=== PATIENT | female | born 1965 | race Caucasian/White ===

== ENCOUNTER 2024-05-25 16:50 | Outpatient (CLI) | payer OTHER, SELFPAY ==
[2024-05-25 17:16] LABS: Basophils # 0.1 K/mm3 (0-0.2); Basophils % 0.8 % (0.1-2.0); Eosinophils # 0.3 K/mm3 (0.0-0.4); Eosinophils % 2.8 % (0.1-12.0); Hematocrit 41.1 % (37.0-47.0); Hemoglobin 13.5 g/dL (12.2-16.2); Lymphocytes # 2.8 K/mm3 (0.7-4.5); Lymphocytes % 28.2 % (10-50); Mean Corpuscular HGB Conc 32.7 g/dL (31.8-35.4); Mean Corpuscular Hemoglobin 29.8 pg (27.0-31.2); Mean Corpuscular Volume 91.1 fl (81-99); Mean Platelet Volume 7.6 fl (7.4-10.4); Monocytes # 0.5 K/mm3 (0.1-1.0); Monocytes % 4.5 % (1.7-9.3); Neutrophils # 6.3 K/mm3 (1.8-7.8); Neutrophils % 63.7 % (37.0-80.0); Platelet Count 365 K/mm3 (142-424); Red Blood Count 4.51 M/mm3 (4.20-5.40); Red Cell Distribution Width 14.3 % (11.5-17.5); White Blood Count 9.8 K/mm3 (4.8-10.8)
[2024-05-25 18:49] LABS: Erythrocyte Sedimentation Rate 9 mm/hr (0-30)
[2024-05-25 22:00] LABS: C-Reactive Protein 18.4 mg/L (0-4)
== END 2024-05-25 23:59 | disposition home or self-care (01) ==
LOC: LAB 16:59
PROVIDERS: PCP Family Medicine; Visit Provider Family Medicine
DX: D47.4 Osteomyelofibrosis (principal)
CPT/HCPCS: 36415; 85025; 85651; 86140

== ENCOUNTER 2024-10-22 17:06 | Outpatient (CLI) | payer OTHER, SELFPAY ==
[2024-10-22 16:40] LABS: Basophils # 0.1 K/mm3 (0-0.2); Basophils % 0.5 % (0.1-2.0); Eosinophils # 0.2 K/mm3 (0.0-0.4); Eosinophils % 1.8 % (0.1-12.0); Hematocrit 40.9 % (37.0-47.0); Hemoglobin 13.4 g/dL (12.2-16.2); Lymphocytes # 2.3 K/mm3 (0.7-4.5); Lymphocytes % 24.7 % (10-50); Mean Corpuscular HGB Conc 32.8 g/dL (31.8-35.4); Mean Corpuscular Hemoglobin 28.8 pg (27.0-31.2); Mean Platelet Volume 10.3 fl (7.4-10.4); Monocytes # 0.6 K/mm3 (0.1-1.0); Neutrophils # 6.1 K/mm3 (1.8-7.8); Neutrophils % 66.5 % (37.0-80.0); Platelet Count 366 K/mm3 (142-424); Red Blood Count 4.65 M/mm3 (4.20-5.40); Red Cell Distribution Width 13.2 % (11.5-17.5); White Blood Count 9.1 K/mm3 (4.8-10.8)
[2024-10-22 17:21] LABS: Erythrocyte Sedimentation Rate 22 mm/hr (0-30); Hemoglobin A1C 5.9 % (4.0-6.0)
[2024-10-22 17:56] LABS: Albumin Level 4.6 g/dl (3.5-5.0); Chloride 96 mmol/L (98-107); Potassium 3.7 mmoL/L (3.5-5.1); Sodium 140 mmol/L (136-145)
[2024-10-22 17:59] LABS: Alanine Aminotransferase 32 U/L (12-78); Albumin/Globulin Ratio 1.8 (1.1-1.8); Alkaline Phosphatase 92 U/L (38-126); Anion Gap 14.7 mEq/L (5-15); Aspartate Amino Transferase 28 U/L (14-36); Bilirubin,Total 0.7 mg/dl (0.2-1.3); Blood Urea Nitrogen 14 mg/dl (7-17); Calcium 9.4 mg/dl (8.4-10.2); Carbon Dioxide 33 mmol/L (22.0-30.0); Cholesterol 212 mg/dl (140-200); Estimated Glomerular Filt Rate 86 ml/min (>60); GFR (African American) 104 ML/MIN (>60); Globulin 2.5 g/dL (1.3-3.2); Glucose 85 mg/dl (74-100); Total Protein,Serum 7.1 g/dl (6.3-8.2); Triglycerides 189 mg/dl (30-150); VLDL Cholesterol 38 mg/dL (0-40)
[2024-10-22 18:00] LABS: Chol/HDL Ratio 3.6 (1-3.5); HDL Cholesterol 59 mg/dl (40-60)
[2024-10-22 18:10] LABS: C-Reactive Protein 10.7 mg/L (0-4); Direct LDL Cholesterol 106.23 mg/dL (100-129)
== END 2024-10-22 23:59 | disposition home or self-care (01) ==
LOC: LAB.DROPOF 17:06
PROVIDERS: PCP Internal Medicine; Visit Provider Internal Medicine
DX: Z00.00 Encounter for general adult medical examination without abnormal findings (principal); D47.1 Chronic myeloproliferative disease; Z13.1 Encounter for screening for diabetes mellitus; Z13.220 Encounter for screening for lipoid disorders
CPT/HCPCS: 80053; 80061; 83036; 85025; 85651; 86140

== ENCOUNTER 2025-03-25 11:35 | Outpatient (CLI) | payer OTHER, SELFPAY ==
[2025-03-25 14:01] LABS: Lyme Ab IgM CIA ND; Lyme IgG CIA ND
[2025-03-25 15:30] LABS: NT Pro Brain Natriuretic Pep. 38.4 pg/mL (0-125)
[2025-03-26 11:38] LABS: Lyme Ab CIA Negative (Negative)
--- OUTSIDE RECORDS SUMMARY | 2025-03-28 11:37 | XMS_ITS | Continuity of Care Document ---
Author Name [facility] Organization [facility] Care Team Providers Care [employer] Tutor Name Role Phone [facility] Unavailable Unavailable Social History Combined list of available smoking, tobacco, and other social history from Department of Defense and Veterans Affairs facilities. Social History Type Response Date Comment Sourc e This section is an empty social history section. DoD
--- OUTSIDE RECORDS SUMMARY | 2025-03-28 11:42 | XMS_ITS | Encounter Summary ---
Author Organization [facility] Address [address] [place] [id number] Care Team Providers Care Commission Associate Name Role Phone Payal Lo MD Primary Care Provider [phone] Juan Pablo Gilman MD Unavailable [phone] Arsenio Fish MD Unavailable Unavailabl e Arlen Garcia NP Unavailable [phone] Indira Li DO Unavailable [phone] Encounter Details Date Type Department Care Team (Late st Contact Info) Description 07/12/[address] [facility] Physicians - Spine Surgery, [place] [address] [place] [address] Ambulatory, Preassembler And Inspector Social History Tobacco Use Types Packs/Day Years Used Date Smoking Tobacco: Former Cigarettes 1 20 0 09/29/1995 - 08/16/2015 Smokeless Tobacco: Never Comments:I miss it and hate the weight gain. 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 No / Unsure 07/13/2020 10:33 AM EDT documented as of this encounter Plan of Treatment Not on file documented as of this encounter Visit Diagnoses Not on filedocumented in this encounter Additional Health Concerns Assessment Noted Time PHQ-9 Depression Total Score: 1 06/22/20 19 3:25 PM EDT documented as of this encounter Care Teams Commission Associate Relationship Specialty Start Date End Date Payal Lo MD PCP - General Family Medicine 03/01/15 09/29/24 Juan Pablo Gilman MD [address] [place] [address] Internal Medicine, Sleep Medicine 11/28/20 Arsenio Fish MD [address] [place] [id number] Neurosurgery 11/30/20 Arlen Garcia NP [address] [place] [address] Nurse Practitioner Nurse Practitioner, Family 12/26/20 Indira Li DO [address] [place] [address] Dermatology 09/13/21 documented as of this encounter
--- OUTSIDE RECORDS SUMMARY | 2025-03-28 11:42 | XMS_ITS | Clinical Summary ---
Author Organization [facility] Address [address] [place] [address] Care Team Providers Care Technical Publications Writer Name Role Phone Juan Pablo Gilman MD Unavailable [phone] Arsenio Fish MD Unavailable Unavailabl Arlen Hawley NP Unavailable [phone] Indira Li DO Unavailable [phone] Allergies Active Allergy Reactions Criticality Noted Date Comments Bee Venom Protein (Honey Bee) Anaphylaxis High 12/19/2021 Nebivolol Other (See Comments) 02/05/2016 Extreme fatigue and leg swelling Flu Vac(Pf)2015(65up)-Adjm f59c Anaphylaxis High 12/19/2021 Influenza A (H1n1) Vac 200803/08/2015 Made pt very sick w/ very high fever Lisinopril 03/08/2015 cough Amlodipine Swelling 03/15/2016 dizziness Nut - Unspecified Swelling 06/22/2019 Mouth swelling Shellfish Derived Anaphylaxis 08/28/2020 Tree Nut Anaphylaxis,Hives,Sw el ling High 11/20/2021 Medications Cholecalciferol, Vitamin D3, 2,000 unit Capsule Take 1 Cap by mouth daily. Active MULTIVITAMIN PO Take 1 Cap by mouth daily. Active umeclidinium-lacey anteroL (Anoro Ellipta) 62.5-25 mcg/actuation Disk with DeviceIndication s:Other emphysema (CMS HCC) Take 1 Puff by inhalation daily. 3 Each 3 3 Active fluticasone propionate (FLONASE) 50 mcg/actuation nasal sprayIndications :Obstructive sleep apnea syndrome SHAKE LIQUID AND USE 1 TO 2 SPRAYS IN EACH NOSTRIL EVERY NIGHT AT BEDTIME 48 g 4 3 Active potassium chloride (Klor-Con M20) 20 mEq SR tabletIndication s:Hypokalemia Take 1 Tablet (20 mEq) by mouth 2 times daily. 180 Tablet 3 3 Active ergocalciferol (ERGOCALCIFEROL) 1,250 mcg (50,000 unit) CapsuleIndicatio ns:Vitamin D deficiency Take 1 Capsule (50,000 Units) by mouth 2 times weekly. 24 Capsule 3 Active Additional Information Patient not taking.Reported on 11/05/2023 Flovent HFA 110 mcg/actuation inhalerIndicatio ns:Other emphysema (CMS HCC) INHALE TWO PUFFS BY MOUTH TWICE A DAY 12 g 5 3 Active ergocalciferol (ERGOCALCIFEROL) 1,250 mcg (50,000 unit) CapsuleIndicatio ns:Vitamin D deficiency Take 1 Capsule (50,000 Units) by mouth 2 times weekly. 24 Capsule 4 Active albuterol sulfate (ProAir HFA) 90 mcg/actuation HFA Aerosol InhalerIndicatio ns:Other emphysema (CMS HCC) Take 1 Puff by inhalation every 4 hours as needed. 3 Each 3 4 Active losartan (COZAAR) 50 mg TabletIndication s:Essential hypertension Take 1 Tablet by mouth 2 times daily. 180 Tablet 3 4 Active chlorthalidone (HYGROTEN) 25 mg tabletIndication s:Essential hypertension Take 1 Tablet (25 mg) by mouth 2 times daily. 180 Tablet 3 4 Active EPINEPHrine (EPIPEN) 0.3 mg/0.3 mL Auto-Injector epi-pen INJECT 0.3 ML (0.3 MG) INTO THE MUSCLE ONCE FOR 1 DOSE 2 Each 11 4 Active Active Problems Problem Noted Date Diagnosed Date RIVAS (obstructive sleep apnea) 12/26/2020 Mixed simple and mucopurulent chronic bronchitis ([facility]) 12/26/2020 Spondylolisthesis, lumbar region 09/18/2020 Overview (09/18/2020): Added automatically from request for surgery [id number] DDD (degenerative disc disease), lumbar 09/18/20 20 Overview (09/18/2020): Added automatically from request for surgery [id number] Lumbar radiculopathy 09/18/2020 Overview (09/18/2020): Added automatically from request for surgery [id number] Foraminal stenosis of lumbar region 09/18/2020 Overview (09/18/2020): Added automatically from request for surgery [id number] Spinal stenosis of lumbar re gion without neurogenic claudication 09/18/2020 Overview (09/18/2020): Added automatically from request for surgery [id number] Lumbar stenosis without neurogenic claudication 09/18/2020 Overview (09/19/2020): Added automatically from request for surgery [id number] Radiculopathy, lumbar region 09/18/2020 Overview (09/19/2020): Added automatically from request for surgery [id number] Lumbar disc disease with radiculopathy 0 Spondylolisthesis of lumbar region 07/13/2020 Non morbid obesity due to excess calories 2016 Plantar fasciitis, bilateral 02/04/2017 Vitamin D deficiency 02/29/2016 Overview (02/17/2018): [facility] HTN (hypertension) Idiopathic myelofibrosis ([facility]) Overview (03/08/2015): Dr Javier Uriarte at [facility] Resolved Problems Problem Noted Date Diagnosed Date Resolved Date Seasonal allergic rhinitis 10/30/2021 0 01/14/2022 Immunizations Immunization Administration Dates Next Due Tdap 10/31/2021,06/29/2012 Family History Medical History Relation Name Comments Cancer Father Leukemia Diabetes Father Heart Problems Father Hypertension Father Cancer Maternal Grandmother Cancer Mother Osteoarthritis Mother Heart Problems Paternal Grandfather Hypertension Paternal Grandfather Heart Problems Paternal Grandmother Anesthesia Complications Neg Hx Relation Name Status Comments Brother Alive Daughter 1 Alive 26 Daughter 2 Alive 21 Father (Age 73) Maternal Grandmother Mother Alive 75 Paternal Grandfather Paternal Grandmother Sister Alive Son 1 Alive 29 Son 2 Alive 21 Social History Tobacco Use Types Packs/Day Years Used Date Smoking Tobacco: Former Cigarettes 1 20 0 09/29/1995 - 08/16/2015 Smokeless Tobacco: Never Tobacco Cessation:Counseling Given: No Comments:I miss it and hate the weight gain. 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 Not on file Last Filed Vital Signs Vital Sign Reading Time Taken Comments Blood Pressure 138/74 11/05/2023 3:39 PM EST Pulse 72 11/05/2023 3:39 PM EST Temperature 36.9 C (98.4 F) 11/05/2023 3:39 PM EST Respiratory Rate 16 10/30/2021 2:07 PM EST Oxygen Saturation 98% 11/05/2023 3:39 PM EST Inhaled Oxygen Concentration - - Weight 98.9 kg (218 lb) 11/05/2023 3:39 PM EST Height 167.6 cm (5' 6 ) 11/05/2023 3:39 PM EST Body Mass Index 35.19 11/05/2023 3:39 PM EST Plan of Treatment Health Maintenance Due Date Last Done Comments Colonoscopy 1966 FIT 1966 Pneumococcal Vaccine: 50+ Ye ars (1 of 2 - PCV) 1985 Zoster-RZV(Shingrix) (1 of 2) 02/23/2016 Lung Cancer Screening 12/20/2021 12/20/2020 COVID-19 Vaccine (2 - 2023-2 5 season) 2024 06/14/2021 Depression Screening 09/29/2024 11/05/2023, 11/04/2022, 10/31/2021, Additional history exists Breast Cancer Screening 08/08/2025 08/08/20, 05/29/2022, 01/25/2021, Additional history exists Cologuard 11/15/2025 11/15/2022 Colorectal Cancer Screening 11/15/2025 Lipid Screening 10/18/2028 10/18/2023, 01/28, 11/01/2022, Additional history exists Tetanus Vaccination (Every 1 0 Years) 10/31/2031 10/31/2021, 06/29/2012 Procedures Procedure Name Priority Date/Time Associated Diagnosis Comments LIPID PROFILE Routine 10/18/2023 10:11 AM EST Annual physical exam Hypertriglyceridemia MAMM-SCREENING W/CHARITY Routine 08/08/2023 2:29 PM EST Visit for screening mammogram COLOGUARD Routine 11/15/2022 6:45 AM EST Screening for colon cancer CT-CHEST W/O CONTRAST Routine 12/20/2020 1:19 PM EDT Idiopathic myelofibrosis (CMS HCC) SOB (shortness of breath) from Last 3 Months or Most Recently Relevant to Health Maintenance Results * (ABNORMAL) LIPID PROFILE (10/18/2023 10:11 AM EST) Cholesterol 197 125 - 199 mg/dL [facility] Comment: TOTAL CHOLESTEROL INTERPRETATION: Less than 200 mg/dL Desireable 200-239 mg/dL Borderline Greater or Equal to 240 mg/dL High LDL Calculated 105(H) 0 - 100 mg/dL [facility] Comment: LDL CHOLESTEROL INTERPRETATION: Less than 100 mg/dL Optimal 100-129 mg/dL Near optimal/above optimal 130-159 mg/dL Borderline High 160-189 mg/dL High Greater or Equal to 190 mg/dL Very High HDL 58 40 - 180 mg/dL [facility] Comment: HDL CHOLESTEROL INTERPRETATION: Less than 40 mg/dL Low Greater than 60 mg/dL Desirable Triglycerides 171(H) 0 - 149 mg/dL [facility] Comment: TOTAL TRIGLYCERIDE INTERPRETATION: Less than 150 mg/dL Normal 150-199 mg/dL Borderline HIgh 200-499 mg/dL High Greater or Equal to 500 mg/dL Very High NONHDL Calculated 139(H) 0 - 129 mg/dL [facility] Comment: NON-HDL INTERPRETATION: Less than 130 mg/dL Desirable 130-159 mg/dL Above Desirable 160-189 mg/dL Borderline High 190-219 mg/dL High Greater than or equal to 220 mg/dL Very High Serum (Serum) 10/18/2023 10: 11 AM EST 10/18/2023 6:14 PM EST Narrative [facility] - 10/18/2023 7:17 PM EST Has the patient fasted?->Yes us Payal Lo MD CHEMISTRY ORDERABLES Final Resul t Performing Organization Address City/State/[facility] Co de Phone Number [facility] [address] * MAMM-SCREENING W/CHARITY (08/08/2023 2:29 PM EST) Anatomical Region Laterality Modality Bilateral Mammography 08/08/2023 4:04 PM EST Impressions 08/08/2023 4:04 PM EST IMPRESSION: No direct or indirect evidence of malignancy. BI-RADS CATEGORY: 1 - NEGATIVE RECOMMENDED FOLLOW-UP: RECOMMENDATION: Follow up mammogram in 1 year LATERALITY: Bilateral Reminder: The patient was entered into a reminder system for annual screening mammography notification. If additional imaging and/or biopsy is indicated, [facility] staff will inform the patient of the findings and recommendations, obtain necessary orders from the referring provider, and schedule the patient for appointment as appropriate. Consider discussion with your primary care provider regarding breast MRI with IV contrast for supplemental breast cancer screening for women with dense breasts. This study was performed and interpreted using full-field digital mammographic and computer-aided detection. The [employer] recommends annual screening mammography for women age 40 and above. Please note that mammography is not 100% accurate in diagnosing breast cancer. A routine breast examination is recommended to correlate with mammographic findings. Any palpable abnormality must be assessed clinically. If the patient has a new or unexplained palpable abnormality, then a diagnostic mammogram and/or breast ultrasound may be indicated. Signed By: Kraig Zarate MD Narrative 08/08/2023 4:04 PM EST STUDY DATE: 08/08/2023 EXAM: MAMM-SCREENING W/CHARITY REASON FOR EXAMINATION: Screening COMPARISON: 2021 and prior TOMOSYNTHESIS: Yes DENSITY: The breast parenchyma has scattered fibroglandular densities. LIMITATIONS OF EXAM: No significant limitations. FINDINGS: No focal mass, architectural distortion or groupings of suspicious calcifications are seen. Procedure Note Kraig Zarate MD - 08/08/2023 STUDY DATE: 08/08/2023 EXAM: MAMM-SCREENING W/CHARITY REASON FOR EXAMINATION: Screening COMPARISON: 2021 and prior TOMOSYNTHESIS: Yes DENSITY: The breast parenchyma has scattered fibroglandular densities. LIMITATIONS OF EXAM: No significant limitations. FINDINGS: No focal mass, architectural distortion or groupings of suspiciouscalcifications are seen. IMPRESSION: No direct or indirect evidence of malignancy. BI-RADS CATEGORY: 1 - NEGATIVE RECOMMENDED FOLLOW-UP: RECOMMENDATION: Follow up mammogram in 1 year LATERALITY: Bilateral Reminder: The patient was entered into a reminder system for annualscreening mammography notification. If additional imaging and/or biopsy is indicated, [facility] staff will inform the patient of the findings and recommendations,obtain necessary orders from the referring provider, and schedule thepatient for appointment as appropriate. Consider discussion with your primary care provider regarding breast MRIwith IV contrast for supplemental breast cancer screening for women withdense breasts. This study was performed and interpreted using full-field digitalmammographic and computer-aided detection. The [employer] recommends annual screening mammographyfor women age 40 and above. Please note that mammography is not 100% accurate in diagnosing breastcancer. A routine breast examination is recommended to correlate withmammographic findings. Any palpable abnormality must be assessed clinically. If the patient hasa new or unexplained palpable abnormality, then a diagnostic mammogramand/or breast ultrasound may be indicated. Signed By: Kraig Zarate MD Payal Lo MD IMG MAMMO ORDERABLES Final Resul t * COLOGUARD (11/15/2022 6:45 AM EST) COLOGUARD Negative Negative [facility] Comment: NEGATIVE TEST RESULT. A negative Cologuard result indicates a low likelihood that a colorectal cancer (CRC) or advanced adenoma (adenomatous polyps with more advanced pre-malignant features) is present. The chance that a person with a negative Cologuard test has a colorectal cancer is less than 1 in 1500 (negative predictive value >99.9%) or has an advanced adenoma is less than 5.3% (negative predictive value 94.7%). These data are based on a prospective cross-sectional study of 10,000 individuals at average risk for colorectal cancer who were screened with both Cologuard and colonoscopy. (Marti Govea et al, N Engl J Med 2014;370(14):9972-8669) The normal value (reference range) for this assay is negative. COLOGUARD RE-SCREENING RECOMMENDATION: Periodic colorectal cancer screening is an important part of preventive healthcare for asymptomatic individuals at average risk for colorectal cancer. Following a negative Cologuard result, the [employer] and U.S. Multi-Society Task Force screening guidelines recommend a Cologuard re-screening interval of 3 years. References: [place] Guideline for Colorectal Cancer Screening: https://www.cancer.org/cancer/cazib-nahgbj-dvfxoz/konmehlbx-gmcprwsal-uavhjzl/ac s-rec ommendations.html.; Gabino ANSARI, Elliot FRANCISCO, Sanju SinclairK, Colorectal Cancer Screening: Recommendations for Physicians and Patients from the U.S. Multi-Society Task Force on Colorectal Cancer Screening , Am J Gastroenterology 2017; 112:3729-6702. TEST DESCRIPTION: Composite algorithmic analysis of stool DNA-biomarkers with hemoglobin immunoassay. Quantitative values of individual biomarkers are not reportable and are not associated with individual biomarker result reference ranges. Cologuard is intended for colorectal cancer screening of adults of either sex, 45 years or older, who are at average-risk for colorectal cancer (CRC). Cologuard has been approved for use by the U.S. FDA. The performance of Cologuard was established in a cross sectional study of average-risk adults aged 50-84. Cologuard performance in patients ages 45 to 49 years was estimated by sub-group analysis of near-age groups. Colonoscopies performed for a positive result may find as the most clinically significant lesion: colorectal cancer [4.0%], advanced adenoma (including sessile serrated polyps greater than or equal to 1cm diameter) [20%] or non- advanced adenoma [31%]; or no colorectal neoplasia [45%]. These estimates are derived from a prospective cross-sectional screening study of 10,000 individuals at average risk for colorectal cancer who were screened with both Cologuard and colonoscopy. (Marti Govea et al, N Engl J Med 2014;370(14):3357-8881.) Cologuard may produce a false negative or false positive result (no colorectal cancer or precancerous polyp present at colonoscopy follow up). A negative Cologuard test result does not guarantee the absence of CRC or advanced adenoma (pre-cancer). The current Cologuard screening interval is every 3 years. ([employer] and U.S. Multi-Society Task Force). Cologuard performance data in a 10,000 patient pivotal study using colonoscopy as the reference method can be accessed at the following location: www.[employer]/results. Additional description of the Cologuard test process, warnings and precautions can be found at www.cologuard.com. Stool (Feces) 11/15/2022 6:4 5 AM EST 11/16/2022 10:12 AM EST Payal Lo MD BODY FLUIDS, STOOLS, AND OTHER F inal Result Performing Organization Address City/State/[facility] Co de Phone Number [facility] [address] [place] [id number] * CT-CHEST W/O CONTRAST (12/20/2020 1:19 PM EDT) Anatomical Region Laterality Modality Chest Computed Tomogra phy 12/20/2020 2:00 PM EDT Impressions 12/20/2020 2:06 PM EDT IMPRESSION: Mild centrilobular emphysema. Old granulomatous disease. Mild coronary artery calcification. Signed By: Rogelio Reddy MD Narrative 12/20/2020 2:06 PM EDT EXAM: CT CHEST WITHOUT CONTRAST INDICATION: Chronic dyspnea COMPARISON: None TECHNIQUE: CT of the chest was performed without contrast. Axial images, multiplanar reformatted images and axial maximum intensity projection images provided for review. Individualized dose optimization technique was used in order to meet ALARA standards for radiation dose reduction. In addition to vendor specific dose reduction algorithms, the dose reduction techniques vary based on the specific scanner utilized but frequently include automated exposure control, adjustment of the mA and/or kV according to patient size, and use of iterative reconstruction technique. CONTRAST: None. FINDINGS: LUNGS AND AIRWAYS: Central airways patent. No bronchiectasis or bronchial wall thickening. Mild centrilobular emphysema. A few densely calcified granulomas bilaterally. No suspicious noncalcified nodules or masses. No airspace consolidation, septal thickening, or fibrotic change. PLEURA: No pleural effusions or pleural thickening. HEART AND GREAT VESSELS: Heart size is normal. Very mild coronary artery calcification. Thoracic aorta and main pulmonary artery normal in caliber. No pericardial effusion. ADENOPATHY/MEDIASTINUM: No adenopathy. CHEST WALL / LOWER NECK: No significant abnormality. UPPER ABDOMEN: No significant abnormality. BONES: No significant abnormality. Procedure Note Rogelio Reddy MD - 12/20/2020 EXAM: CT CHEST WITHOUT CONTRAST INDICATION: Chronic dyspnea COMPARISON: None TECHNIQUE: CT of the chest was performed without contrast. Axial images,multiplanar reformatted images and axial maximum intensity projectionimages provided for review. Individualized dose optimization techniquewas used in order to meet ALARA standards for radiation dose reduction.In addition to vendor specific dose reduction algorithms, the dosereduction techniques vary based on the specific scanner utilized butfrequently include automated exposure control, adjustment of the mA and/or kV according to patient size, and use of iterative reconstructiontechnique. CONTRAST: None. FINDINGS: LUNGS AND AIRWAYS: Central airways patent. No bronchiectasis or bronchialwall thickening. Mild centrilobular emphysema. A few densely calcifiedgranulomas bilaterally. No suspicious noncalcified nodules or masses. Noairspace consolidation, septal thickening, or fibrotic change. PLEURA: No pleural effusions or pleural thickening. HEART AND GREAT VESSELS: Heart size is normal. Very mild coronary arterycalcification. Thoracic aorta and main pulmonary artery normal in caliber.No pericardial effusion. ADENOPATHY/MEDIASTINUM: No adenopathy. CHEST WALL / LOWER NECK: No significant abnormality. UPPER ABDOMEN: No significant abnormality. BONES: No significant abnormality. IMPRESSION: Mild centrilobular emphysema. Old granulomatous disease. Mild coronary artery calcification. Signed By: Rogelio Reddy MD Payal Lo MD IMG CT ORDERABLES Final Result from Last 3 Months or Most Recently Relevant to Health Maintenance Insurance [facility] [id number] [address] [place] [id number] Care Teams Technical Publications Writer Relationship Specialty Start Date End Date Juan Pablo Gilman MD [address] [place] [address] Internal Medicine, Sleep Medicine 11/28/20 Arsenio Fish MD [address] [place] [address] Neurosurgery 11/30/20 Arlen Garcia NP [address] [place] [address] Nurse Practitioner Nurse Practitioner, Family 12/26/20 Indira Li DO [address] [place] [address] Dermatology 09/13/21
--- OUTSIDE RECORDS SUMMARY | 2025-03-28 11:42 | XMS_ITS | Encounter Summary ---
Author Organization [facility] Address [address] [place] [address] Care Team Providers Care Faro Dealer Name Role Phone Payal Lo MD Primary Care Provider [phone] Juan Pablo Gilman MD Unavailable [phone] Arsenio Fish MD Unavailable Unavailabl e Arlen Garcia NP Unavailable [phone] Indira Li DO Unavailable [phone] Reason for Visit * Reason Comments Medications Refill Encounter Details Date Type Department Care Team (Late st Contact Info) Description 04/02/2020 Refill [facility] Physicians - Primary Care, [place] [address] [id number] Payal Lo MD [address] [facility], [address] [place] [address] Medications Refill Social History Tobacco Use Types Packs/Day Years [...] Industry Job Start Date Job End Date [employer] Not on file Not on sergio e Not on file documented as of this encounter Miscellaneous Notes * Telephone Encounter - Catherine Flores RMA - 04/03/2020 4:16 PM EDT Requested Prescriptions Pending Prescriptions Disp Refills ??? Anoro Ellipta 62.5-25 mcg/actuation Disk with Device [Pharmacy Med Name: ANORO ELLIPTA 62.5-25 ORAL INH(30S)] 1 Inhaler 3 Sig: INHALE 1 PUFF BY MOUTH EVERY DAY Last appt and type-07/20/2019 Next appt and type-not scheduled. Pending labs on file- No documented in this encounter Plan of Treatment Not on file documented as of this encounter Visit Diagnoses Not on filedocumented in this encounter Additional Health Concerns Assessment Noted Time PHQ-9 Depression Total Score: 1 06/22/20 19 3:25 PM EDT documented as of this encounter Care Teams Faro Dealer Relationship Specialty Start Date End Date Payal Lo MD PCP - General Family Medicine 03/01/15 09/29/24 Juan Pablo Gilman MD [address] [place] [address] Internal Medicine, Sleep Medicine 11/28/20 Arsenio Fish MD [address] [place] [address] Neurosurgery 11/30/20 Arlen Garcia NP [address] [place] [address] Nurse Practitioner Nurse Practitioner, Family 12/26/20 Indira Li, [address] [place] [address] Dermatology 09/13/21 documented as of this encounter
--- OUTSIDE RECORDS SUMMARY | 2025-03-28 11:43 | XMS_ITS | Encounter Summary ---
Author Organization [facility] Address [address] [place] [address] Care Team Providers Care Landscaping Manager Name Role Phone Payal Lo MD Primary Care Provider [phone] Juan Pablo Gilman MD Unavailable [phone] Arsenio Fish MD Unavailable Unavailabl e Arlen Garcia NP Unavailable [phone] Indira Li DO Unavailable [phone] Reason for Visit * Reason Comments Medications Refill Encounter Details Date Type Department Care Team (Late st Contact Info) Description 01/26/2023 Refill [facility] Physicians - Primary Care, [place] [address] [place] [address] Payal Lo MD [address] [facility], [address] [place] [address] Medications Refill Social History Tobacco Use Types Packs/Day Years Used Date Smoking Tobacco: Former Cigarettes 1 20 0 09/29/1995 - 08/16/2015 Smokeless Tobacco: Never Comments:I miss it and hate the weight gain. 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 documented in this encounter Plan of Treatment Not on file documented as of this encounter Visit Diagnoses Diagnosis Vitamin D deficiency documented in this encounter Additional Health Concerns Assessment Noted Time PHQ-9 Depression Total Score: 1 11/04/19 23 3:59 PM EST documented as of this encounter Care Teams Landscaping Manager Relationship Specialty Start Date End Date Payal Lo MD PCP - General Family Medicine 03/01/15 09/29/24 Juan Pablo Gilman MD [address] [place] [address] Internal Medicine, Sleep Medicine 11/28/20 Arsenio Fish MD [address] [place] [address] Neurosurgery 11/30/20 Arlen Garcia NP [address] [place] [address] Nurse Practitioner Nurse Practitioner, Family 12/26/20 Indira Li DO [address] [place] [address] Dermatology 09/13/21 documented as of this encounter
--- OUTSIDE RECORDS SUMMARY | 2025-03-28 11:43 | XMS_ITS | Clinical Summary ---
Author Organization [facility] Address [address] [place] [address] Phone Care Team Providers Care Group Manager Name Role Phone Chapito Hood MD, Payal Parker MD Primary Care Provider [phone] Allergies Active Allergy Reactions Criticality Noted Date Comments Amlodipine Swelling High 12/19/2021 Bee Venom Protein (Honey Bee) Anaphylaxis High 12/19 Flu Vac(Pf)2016(65up)-[id number] Anaphylaxis High 11/28 Lisinopril Cough Medium 12/19/2021 Nebivolol Swelling High 12/19/2021 Shellfish Containing Products Anaphylaxis High 12/19 Tree Nuts Anaphylaxis High 12/19/2021 Medications fluticasone (FLONASE) 50 mcg/actuation Nasl [place], SuspensionIndica tions:Recurrent acute serous otitis media of right ear 1 [place] by Nasal route daily. 1 Bottle 8 Active gabapentin (NEURONTIN) 300 mg Oral Capsule Take 300 mg by mouth 3 times daily. Active methocarbamoL (ROBAXIN) 500 mg Oral Tablet Take 500 mg by mouth 3 times daily. Active enoxaparin (LOVENOX) SubQ Syringe 30 mg/m0.3 mL Subcutaneous (Inject under the skin) every 12 hours. Active acetaminophen 325 mg Oral Tab Take 975 mg by mouth every 6 hours. Active oxyCODONE (ROXICODONE) 5 mg Oral Tablet Take 5-10 mg by mouth every 6 hours as needed. Active ONE DAILY MULTIVITAMIN ORAL Take 1 Tablet by mouth daily. Active Active Problems Problem Noted Date Diagnosed Date Acute postoperative pain of right knee 2 Cellulitis of right lower extremity 12/19/2021 HTN (hypertension) 09/03/2021 Chronic myeloproliferative disorder 06/08/2015 Immunizations Immunization Administration Dates Next Due Tdap 06/29/2012 Surgical History Surgery Date Site/Laterality Comments SHOULDER SURGERY 07/14/2013 Right KNEE SURGERY 08/29/2013 Right HYSTERECTOMY Medical History Medical History Date Comments Myelofibrosis (HCC) Family History Medical History Relation Name Comments Other Father Blood issues Relation Name Status Comments Father Social History Tobacco Use Types Packs/Day Years Used Date Smoking Tobacco: Former Cigarettes Q uit: 07/03/2015 Smokeless Tobacco: Never Alcohol Use Standard Drinks/Week Comments Yes 0 (1 standard drink = 0.6 oz pur e alcohol) occ Comments No Sex and Gender Information Value Date Recorded Sex Assigned at Not on file Legal Sex Female 6:25 AM EDT Gender Identity Not on file Sexual Orientation Not on file Obstetrics History Last Filed Vital Signs Vital Sign Reading Time Taken Comments Blood Pressure 143/64 12/19/2021 1:05 PM EDT Pulse 72 12/19/2021 1:05 PM EDT Temperature 36.8 C (98.2 F) 12/19/2021 1:05 PM EDT Respiratory Rate 16 12/19/2021 1:05 PM EDT Oxygen Saturation 98% 12/19/2021 1:05 PM EDT Inhaled Oxygen Concentration - - Weight 83.9 kg (185 lb) 12/19/2021 3:32 AM EDT Height 167.6 cm (5' 6 ) 12/19/2021 3:32 AM EDT Body Mass Index 29.86 12/19/2021 3:32 AM EDT Plan of Treatment Health Maintenance Due Date Last Done Comments Annual Wellness Exam 1969 Hepatitis B Vaccine (1 of 3 - 19+ 3-dose series) 1985 HPV/Pap Cotest 02/23/1996 Cologuard 2011 Colon Cancer Screening 2011 Colonoscopy 2011 FIT 2011 Sigmoidoscopy 2011 Virtual Colonography 2011 Pneumococcal Vaccine 50+ (1 of 1 - PCV) 02/23/2016 Zoster (1 of 2) 02/23/2016 Cervical Cancer Screening 05/02/2017 Pap Smear 05/02/2017 05/02/2014 Breast Cancer Screening 01/25/2023 01/26/20 21, 09/10/2018, 04/17/2017, Additional history exists COVID-19 Vaccine ( - season) 2024 Influenza Vaccine (Season Ended) 2025 DTaP/TDaP/Td (3 - Td or Tdap) 10/31/2031 10/31/2021, 06/29/2012 Meningococcal B Vaccine Aged Out No l onger eligible based on patient's age to complete this topic Procedures Procedure Name Priority Date/Time Associated Diagnosis Comments MM MAMMO DIGITAL SCREENING W CAD BILAT Routine 05/04/2014 3:10 PM EDT Other screening mammogram from Last 3 Months or Most Recently Relevant to Health Maintenance Results * MM MAMMO DIGITAL SCREENING W CAD BILAT (05/04/2014 3:10 PM EDT) Anatomical Region Laterality Modality Breast Bilateral Mammography 05/05/2014 7:37 AM EDT Impressions 05/05/2014 8:33 AM EDT : Negative ([id number]) ~ RECOMMENDATION: Routine screening mammogram in 1 year. ~ * The patient with a palpable abnormality, unexplained by breast imaging, should be managed on clinical basis by the attending physician. * Breast imaging has a false negative rate of 15%. * The patient was notified by mail of the results of this examination. *The patient's information was entered into a reminder system with a target due date for the next mammogram. The mammogram was reviewed by a Radiologist and CAD. Narrative 05/05/2014 8:33 AM EDT Procedure:MM MAMMO DIGITAL SCREENING W CAD BILAT ~ Reason for exam: screening (asymptomatic). ~ MM MAMMO DIG SCREEN CAD BILAT Bilateral CC and MLO view(s) were taken. The breast tissue is heterogeneously dense. This may lower the sensitivity of mammography. No suspicious calcifications. Compared with prior studies the most recent being 05-09-09 ~ Procedure Note Young Sibley MD - 05/05/2014 Procedure:MM MAMMO DIGITAL SCREENING W CAD BILAT ~ Reason for exam: screening (asymptomatic). ~ MM MAMMO DIG SCREEN CAD BILAT Bilateral CC and MLO view(s) were taken. The breast tissue is heterogeneously dense. This may lower thesensitivity of mammography. No suspicious calcifications. Compared with prior studies the most recent being 05-09-09 ~ IMPRESSION: Negative ([id number]) ~ RECOMMENDATION: Routine screening mammogram in 1 year. ~ * The patient with a palpable abnormality, unexplained by breast imaging, should be managed on clinical basis by the attending physician. * Breast imaging has a false negative rate of 15%. * The patient was notified by mail of the results of this examination. *The patient's information was entered into a reminder system with atarget due date for the next mammogram. The mammogram was reviewed by a Radiologist and CAD. Donaldo Eric MD IMG MAMMOGRAPHY ORDERABLES Final Result from Last 3 Months or Most Recently Relevant to Health Maintenance Insurance ANTHEM PPO ANTHEM PPO PPO * Guarantor: Maria Luisa Craven Account Type Relation to Patient Date of Phone Billing Address [place] Personal Family Self Advance Directives For more information, please contact: [phone] * Full Code (Latest Code Status on File) Date Activated Date Inactivated Comments 12/19/2021 3:20 AM 12/19/2021 8:38 PM Care Teams Group Manager Relationship Specialty Start Date End Date Conrado Uriarte MD PCP - Hematology/Oncology Internal Medicine-Medical Oncology 06/06/15 Payal Lo MD PCP - General Family Medicine 01/16/18
== END 2025-03-25 23:59 | disposition home or self-care (01) ==
LOC: LAB.DROPOF 03-28 11:36
PROVIDERS: PCP Internal Medicine; Visit Provider Internal Medicine
DX: S30.860A Insect bite (nonvenomous) of lower back and pelvis, initial encounter (principal); R60.9 Edema, unspecified; W57.XXXA Bitten or stung by nonvenomous insect and other nonvenomous arthropods, initial encounter; R79.82 Elevated C-reactive protein (CRP)
CPT/HCPCS: 36415; 83880; 86140; 86618

== ENCOUNTER 2025-04-12 15:02 | Outpatient (CLI) | payer OTHER, SELFPAY ==
--- OUTSIDE RECORDS SUMMARY | 2025-04-12 15:04 | XMS_ITS | Continuity of Care Document ---
Author Name [facility] Organization [facility] Care Team Providers Care Director Dietetics Department Name Role Phone [facility] Unavailable Unavailable Social History Combined list of available smoking, tobacco, and other social history from Department of Defense and Veterans Affairs facilities. Social History Type Response Date Comment Sourc e This section is an empty social history section. [facility]
--- OUTSIDE RECORDS SUMMARY | 2025-04-12 15:05 | XMS_ITS | Encounter Summary ---
Author Organization [facility] Address [address] [place] [address] Care Team Providers Care Veterinary Manager Name Role Phone Pcp, Rosemarie Primary Care Provider [phone] Payal Lo MD Primary Care Provider [phone] Source Comments This information has been disclosed to you from confidential records protectfrom disclosure by state law. You shall make no further disclosure of thisinformation without the specific, written, and informed release of theindividual to whom it pertains, or as otherwise permitted by law. A generalauthorization for the release of medical or other information is not sufficientfor the purposes of the release of HIV test results or diagnoses. [id number] Health Encounter Details Date Type Department Care Team (Late st Contact Info) Description 07/20/2015 Orders Only [facility] [place] [facility] [address] [place] [address] Dutch Isabel MD Social History Tobacco Use Types Packs/Day Years Used Date Smoking Tobacco: Every Day Cigarettes 1 20 Smokeless Tobacco: Never Alcohol Use Standard Drinks/Week Comments Yes 0 (1 standard drink = 0.6 oz pur e alcohol) 5-6 drinks per week. Comments No Sex and Gender Information Value Date Recorded Sex Assigned at Not on file Legal Sex Female 10:23 PM EST Gender Identity Not on file Sexual Orientation Not on file documented as of this encounter Plan of Treatment Not on file documented as of this encounter Procedures Procedure Name Priority Date/Time Associated Diagnosis Comments [facility] EXTERNAL IMAGING 07/20/2015 11:21 AM EDT documented in this encounter Results * [facility] External Imaging (07/20/2015 11:21 AM EDT) Anatomical Region Laterality Modality Radiographic Makenna ging 07/20/2015 11:2 1 AM EDT Narrative 07/20/2015 12:35 PM EDT EXAMINATION: MRI SHOULDER LEFT WO CONTRAST DATE: 07/20/2015 11:21 AM HISTORY: Chronic left shoulder pain and history of shoulder dislocations per the technologist. There is no recent history per provided history. COMPARISON: None available. TECHNIQUE: Multiplanar, multisequence MR imaging of the left shoulder was performed without the use of contrast. FINDINGS: Rotator cuff and associated structures: The supraspinatus, infraspinatus, and subscapularis tendons are enlarged and increased in signal consistent with tendinosis. There is no high-grade partial or full-thickness rotator cuff tendon tear identified. The teres minor muscle and tendon are intact. The long head of the biceps tendon is intact and located within the bicipital groove. The intra-articular portion is increased in size and signal consistent with tendinosis. There is also fluid within the biceps tendon sheath. Osseous structures and articulations: There is no glenohumeral fracture or dislocation. There is glenoid chondral irregularity, with areas of fissuring and fibrillation most prominent inferiorly. There is also chondral irregularity posterosuperiorly. The glenoid labrum is diffusely irregular. The biceps labral anchor appears intact, however the posterosuperior labrum is torn, and there is thickening and likely chronic tearing/scarring of the anteroinferior labrum. No paralabral cyst is appreciated. There are mild degenerative changes of the acromioclavicular joint without undersurface spur. No os acromiale is identified. There is a small joint effusion with evidence of synovitis. Within the subscapularis recess, there is an 1.3 cm linear low intensity focus seen on series 7, image 20 and series 5, image 21 likely reflecting an intra-articular body. There is no significant fluid in the subacromial/subdeltoid bursa. IMPRESSION: 1. Negative for full-thickness or high-grade partial thickness rotator cuff tendon tear. There is moderate rotator cuff tendinosis, most prominent in the supraspinatus and subscapularis tendons. 2. Glenohumeral degenerative changes joint changes, with articular cartilage irregularity and diffuse glenoid labral irregularity. The appearance of the anterior-inferior labrum suggests chronic scarring and tearing in a Bankart type pattern. 3. Glenohumeral joint effusion and evidence of synovitis. There are likely intra-articular bodies secondary to the glenohumeral degenerative joint changes. 4. Intra-articular biceps tendinosis. 5. Mild acromioclavicular degenerative joint changes. Procedure Note 07/20/2015 EXAMINATION: MRI SHOULDER LEFT WO CONTRAST DATE: 07/20/2015 11:21 AM HISTORY: Chronic left shoulder pain and history of shoulderdislocations per the technologist. There is no recent history per provided history. COMPARISON: None available. TECHNIQUE: Multiplanar, multisequence MR imaging of the left shoulderwas performed without the use of contrast. FINDINGS: Rotator cuff and associated structures: The supraspinatus,infraspinatus, and subscapularis tendons are enlarged and increased in signal consistentwith tendinosis. There is no high-grade partial or full-thickness rotatorcuff tendon tear identified. The teres minor muscle and tendon are intact. The long head of the biceps tendon is intact and located within the bicipital groove. The intra-articular portion is increased in size and signal consistent with tendinosis. There is also fluid within the biceps tendon sheath. Osseous structures and articulations: There is no glenohumeral fractureor dislocation. There is glenoid chondral irregularity, with areas of fissuring and fibrillation most prominent inferiorly. There is also chondral irregularity posterosuperiorly. The glenoid labrum is diffusely irregular. The biceps labral anchor appears intact, however the posterosuperior labrum is torn, and there is thickening and likely chronic tearing/scarring of the anteroinferior labrum. No paralabral cyst is appreciated. There are mild degenerative changes of the acromioclavicular jointwithout undersurface spur. No os acromiale is identified. There is a small joint effusion with evidence of synovitis. Within the subscapularis recess, there is an 1.3 cm linear low intensity focus seen on series 7, image 20 and series 5, image 21 likely reflecting an intra-articular body. There is no significant fluid in the subacromial/subdeltoid bursa. IMPRESSION: 1. Negative for full-thickness or high-grade partial thickness rotator cuff tendon tear. There is moderate rotator cuff tendinosis, most prominentin the supraspinatus and subscapularis tendons. 2. Glenohumeral degenerative changes joint changes, with articular cartilage irregularity and diffuse glenoid labral irregularity. The appearance of the anterior-inferior labrum suggests chronic scarring and tearing in a Bankart type pattern. 3. Glenohumeral joint effusion and evidence of synovitis. There arelikely intra-articular bodies secondary to the glenohumeral degenerative joint changes. 4. Intra-articular biceps tendinosis. 5. Mild acromioclavicular degenerative joint changes. us Dutch Isabel MD IMG DIAGNOSTIC IMAGING ORDERA BLES Final Result documented in this encounter Visit Diagnoses Not on filedocumented in this encounter Additional Health Concerns Infection Onset Date Last Indicated Resolved Time Rule Out COVID-19 11/30/2021 11/30/2021 12/01/2021 10:48 AM EST documented as of this encounter Care Teams Veterinary Manager Relationship Specialty Start Date End Date Pcp, No No Address PCP - General 06/28/13 08/15/15 Payal Lo MD No Address PCP - General Family Medicine 08/16/15 documented as of this encounter
--- OUTSIDE RECORDS SUMMARY | 2025-04-12 15:05 | XMS_ITS | Encounter Summary ---
Author Organization [facility] [place] [facility] Address [address] [place] [address] Care Team Providers Care Broommaking Supervisor Name Role Phone Pcp, Rosemarie Primary Care Provider [phone] Payal Lo MD Primary Care Provider [phone] Source Comments This information has been disclosed [...] release of HIV test results or diagnoses. [id number] Health Encounter Details Date Type Department Care Team (Late st Contact Info) Description 07/18/2015 Orders Only [place] [facility] [place] [facility] [address] [facility] [address] [place] [address] Dutch Isabel MD Left shoulder pain (Primary Dx) Social History Tobacco Use Types Packs/Day Years [...] as of this encounter Visit Diagnoses Diagnosis Left shoulder pain- Primary Pain in joint, shoulder region documented in this encounter Additional Health Concerns Infection Onset Date Last Indicated Resolved Time Rule Out COVID-19 11/30/2021 11/30/2021 12/01/2021 10:48 AM EST documented as of this encounter Care Teams Broommaking Supervisor Relationship Specialty Start Date End Date Pcp, No No Address PCP - General 06/28/13 08/15/15 Payal Lo MD No Address PCP - General Family Medicine 08/16/15 documented as of this encounter
--- OUTSIDE RECORDS SUMMARY | 2025-04-12 15:05 | XMS_ITS | Encounter Summary ---
Author Organization [facility] Address [address] [place] [address] Care Team Providers Care Pneumatic Tool Repairer Name Role Phone Payal Lo MD Primary Care Provider [phone] Source Comments This information has been disclosed [...] release of HIV test results or diagnoses. [id number] Health Encounter Details Date Type Department Care Team (Late st Contact Info) Description 05/11/2018 Orders Only [facility] [address] [facility] [address] [place] [address] Dutch Isabel MD Social History Tobacco Use Types Packs/Day Years Used Date Smoking Tobacco: Every Day Cigarettes 1 20 Smokeless Tobacco: Never Alcohol Use Standard Drinks/Week Comments Yes 0 (1 standard drink = 0.6 oz pure alcohol) 5-6 drinks per week. 2015= 2-3 drinks per week Comments No Sex and Gender Information Value Date Recorded Sex Assigned at Not on file Legal Sex Female 10:23 PM EST Gender Identity Not on file Sexual Orientation Not on file documented as of this encounter Plan of Treatment Not on file documented as of this encounter Procedures Procedure Name Priority Date/Time Associated Diagnosis Comments EXTERNAL - MRI KNEE RIGHT WO CONTRAST 05/11/2018 7:23 AM EDT documented in this encounter Results * External - MRI Knee Right WO Contrast (05/11/2018 7:23 AM EDT) Anatomical Region Laterality Modality Magnetic Resonan ce 05/11/2018 7:23 AM EDT Narrative 05/11/2018 4:20 PM EDT MRI KNEE RIGHT WO CONTRAST, 05/11/2018. CLINICAL HISTORY: M25.561-Pain in right [id number] COMPARISON: None. TECHNIQUE: Multiplanar, multisequence MR images of the right knee were obtained without the use of contrast. The patient status post surgery in 2012 per report, an evaluation of the postoperative meniscus is limited without arthrographic technique. FINDINGS: MENISCI: There is intrasubstance signal in the medial meniscal posterior horn. There is subtle loss of the inferior articular margin of the posterior horn without fluid cleft or meniscal displacement. The root attachment fibers are intact posteriorly and there is no extrusion. The lateral meniscus is intact. LIGAMENTS: The anterior and posterior cruciate ligaments are intact. The medial collateral ligament is intact. The lateral supporting structures including the iliotibial band, lateral collateral ligament, and biceps femoris tendon are intact. The popliteus tendon is intact. OSSEOUS STRUCTURES & ARTICULATIONS: There is no fracture or malalignment. There is no marrow infiltration or characteristic contusion pattern. Mild partial depth chondral fissuring is noted in the central weightbearing aspect medial femoral condyle. There is no localized subchondral bone edema. There is no localized medial or lateral compartment chondral defect. The extensor mechanism is intact. Mild quadriceps fat pad edema is questioned. Soft tissue edema is present anterior to the patellar tendon. There is also a small amount of fluid in the deep infrapatellar bursal space. Patellar chondral attenuation is noted about the median ridge of the patella. The region of patellar chondral abnormality measures approximately 1.5 cm superior-inferior by approximately 1.5 cm transverse. Localized subchondral bone changes are noted at the superior patella pole compatible with full-thickness chondral absence. There is no discrete chondral defect in the trochlea. There is a small joint effusion and no distention of a Radford's cyst. IMPRESSION: 1. Intrasubstance signal is noted in the medial meniscal posterior horn and there is subtle attenuation undersurface margin. Please correlate with arthroscopy history and previous imaging if available. By non-arthrographic assessment, there is no definite evidence of medial meniscal tear. If indicated, MRI arthrography would be of utility for detailed assessment. 2. Intact lateral meniscus, cruciate ligaments, collateral ligaments. 3. Prepatellar soft tissue edema is present and there is also a small amount of fluid in the deep infrapatellar bursal space. Please correlate for post traumatic changes/bursitis. There is no evidence of fracture. 4. Patellofemoral findings include: - Grade 3 and 4 chondral fissuring about the central patellofemoral most pronounced at the superior pole where there are subchondral bone changes. - Mild quadriceps fat pad impingement is questioned. Procedure Note Unknown, Attending Provider - 05/11/2018 MRI KNEE RIGHT WO CONTRAST, 05/11/2018. CLINICAL HISTORY: M25.561-Pain in right [id number] COMPARISON: None. TECHNIQUE: Multiplanar, multisequence MR images of the right knee were obtained without the use of contrast. The patient status post surgery in 2012 per report, an evaluation of the postoperative meniscus is limited without arthrographic technique. FINDINGS: MENISCI: There is intrasubstance signal in the medial meniscal posterior horn. There is subtle loss of the inferior articular margin of the posteriorhorn without fluid cleft or meniscal displacement. The root attachment fibers are intact posteriorly and there is no extrusion. The lateral meniscus is intact. LIGAMENTS: The anterior and posterior cruciate ligaments are intact. The medial collateral ligament is intact. The lateral supporting structures including the iliotibial band, lateral collateral ligament, and biceps femoris tendonare intact. The popliteus tendon is intact. OSSEOUS STRUCTURES & ARTICULATIONS: There is no fracture ormalalignment. There is no marrow infiltration or characteristic contusion pattern.Mild partial depth chondral fissuring is noted in the central weightbearing aspect medial femoral condyle. There is no localized subchondral bone edema.There is no localized medial or lateral compartment chondral defect. The extensor mechanism is intact. Mild quadriceps fat pad edema is questioned. Soft tissue edema is present anterior to the patellar tendon. There isalso a small amount of fluid in the deep infrapatellar bursal space. Patellar chondral attenuation is noted about the median ridge of the patella. The regionof patellar chondral abnormality measures approximately 1.5 cm superior-inferior by approximately 1.5 cm transverse. Localized subchondral bone changes are noted at the superior patella pole compatible with full-thickness chondral absence. There is no discrete chondral defect in the trochlea. There is a small joint effusion and no distention of a Radford's cyst. IMPRESSION: 1. Intrasubstance signal is noted in the medial meniscal posterior hornand there is subtle attenuation undersurface margin. Please correlate with arthroscopy history and previous imaging if available. Bynon-arthrographic assessment, there is no definite evidence of medial meniscal tear. If indicated, MRI arthrography would be of utility for detailed assessment. 2. Intact lateral meniscus, cruciate ligaments, collateral ligaments. 3. Prepatellar soft tissue edema is present and there is also a small amount of fluid in the deep infrapatellar bursal space. Please correlate for post traumatic changes/bursitis. There is no evidence of fracture. 4. Patellofemoral findings include: - Grade 3 and 4 chondral fissuring about the central patellofemoralmost pronounced at the superior pole where there are subchondral bonechanges. - Mild quadriceps fat pad impingement is questioned. us Dutch Isabel MD IMG MRI ORDERABLES Final Resu lt documented in this encounter Visit Diagnoses Not on filedocumented in this encounter Additional Health Concerns Infection Onset Date Last Indicated Resolved Time Rule Out COVID-19 11/30/2021 11/30/2021 12/01/2021 10:48 AM EST Assessment Noted Time PHQ-9 Depression Total Score: 0 05/05/20 18 3:56 PM EDT documented as of this encounter Care Teams Pneumatic Tool Repairer Relationship Specialty Start Date End Date Payal Lo MD PCP - General Family Medicine 08/16/15 documented as of this encounter
--- OUTSIDE RECORDS SUMMARY | 2025-04-12 15:05 | XMS_ITS | Clinical Summary ---
Author Organization [facility] Address [address] [facility] [place] [address] Phone Care Team Providers Care Orthotics Technician Name Role Phone Chapito Hood MD, Payal Parker MD Primary Care Provider Allergies Active Allergy Reactions Criticality Noted Date Comments Amlodipine Swelling High 12/19/2021 Bee Venom Protein (Honey Bee) Anaphylaxis High 12/19 Flu Vac(Pf)2016([id number] Anaphylaxis High 11/28 Lisinopril Cough Medium 12/19/2021 Nebivolol Swelling High 12/19/2021 Shellfish Containing Products Anaphylaxis High 12/19 Tree Nuts Anaphylaxis High 12/19/2021 Medications fluticasone (FLONASE) 50 mcg/actuation Nasl [place], SuspensionIndica tions:Recurrent acute serous otitis media of right ear 1 [place] by Nasal route daily. 1 Bottle 8 [...] Vaccine ( - season) 2024 Influenza Vaccine (#1) 2025 DTaP/TDaP/Td (3 - Td or Tdap) [...] Impressions 05/05/2014 8:33 AM EDT : Negative ([id number]-[id number]-2) ~ RECOMMENDATION: Routine screening mammogram in 1 [...] most recent being 05-09-09 ~ IMPRESSION: Negative ([id number]-6) ~ RECOMMENDATION: Routine screening mammogram in 1 [...] Advance Directives For more information, please contact: [phone] * Full Code (Latest Code Status on File) Date Activated Date Inactivated Comments 12/19/2021 3:20 AM 12/19/2021 8:38 PM Care Teams Orthotics Technician Relationship Specialty Start Date End Date Conrado Uriarte MD PCP - Hematology/Oncology Internal Medicine-Medical Oncology 06/06/15 Payal Lo MD PCP - General Family Medicine 01/16/18
--- OUTSIDE RECORDS SUMMARY | 2025-04-12 15:05 | XMS_ITS | Encounter Summary ---
Author Organization [facility] Address [address] [place] [address] Care Team Providers Care Collet Gluer Name Role Phone Payal Lo MD Primary Care Provider [phone] Juan Pablo Gilman MD Unavailable [phone] Arsenio Fish MD Unavailable Unavailabl e Arlen Garica NP Unavailable [phone] Indira Li DO Unavailable [phone] Reason for Visit * Reason Comments Medications Refill Encounter Details Date Type Department Care Team (Late st Contact Info) Description 01/26/2023 Refill [facility] Physicians - Primary Care, [place] [address] [place] [address] Payal Lo MD [address] 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 [place] [address] Internal Medicine, Sleep Medicine 11/28/20 Arsenio Fish MD [address] [place] [address] Neurosurgery 11/30/20 Arlen Garcia NP [address] [place] [address] Nurse Practitioner Nurse Practitioner, Family 12/26/20 Indira Li DO [address] [place] [address] Dermatology 09/13/21 documented as of this encounter
--- OUTSIDE RECORDS SUMMARY | 2025-04-12 15:05 | XMS_ITS | Clinical Summary ---
Author Organization [facility] Address [address] [place] [address] Care Team Providers Care Lumber Yard Worker Name Role Phone Juan Pablo Gilman MD Unavailable Arsenio Fish MD Unavailable Unavailabl Arlen Hawley NP Unavailable [phone] Indira Li DO Unavailable [phone] Allergies Active Allergy Reactions Criticality Noted Date [...] 12/26/2020 Mixed simple and mucopurulent chronic bronchitis ([facility]) 12/26/2020 Spondylolisthesis, lumbar region 09/18/2020 Overview (09/18/2020): Added automatically from request for surgery [id number] DDD (degenerative disc disease), lumbar 09/18/20 20 Overview (09/18/2020): Added automatically from request for surgery [id number] Lumbar radiculopathy 09/18/2020 Overview (09/18/2020): Added automatically from request for surgery [id number] Foraminal stenosis of lumbar region 09/18/2020 Overview (09/18/2020): Added automatically from request for surgery [id number] Spinal stenosis of lumbar re gion without neurogenic claudication 09/18/2020 Overview (09/18/2020): Added automatically from request for surgery [id number] Lumbar stenosis without neurogenic claudication 09/18/2020 Overview (09/19/2020): Added automatically from request for surgery [id number] Radiculopathy, lumbar region 09/18/2020 Overview (09/19/2020): Added automatically from request for surgery [id number] Lumbar disc disease with radiculopathy 0 Spondylolisthesis of lumbar region 07/13/2020 Non morbid obesity due to excess calories 2016 Plantar fasciitis, bilateral 02/04/2017 Vitamin D deficiency 02/29/2016 Overview (02/17/2018): [facility] HTN (hypertension) Idiopathic myelofibrosis ([facility]) Overview (03/08/2015): Dr Javier Uriarte at [facility] Resolved Problems Problem Noted Date Diagnosed Date [...] 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 Not on [...] Desirable Triglycerides 171(H) 0 - 149 mg/dL [facility] Comment: TOTAL TRIGLYCERIDE INTERPRETATION: Less than 150 mg/dL Normal 150-199 mg/dL Borderline HIgh 200-499 mg/dL High Greater or Equal to 500 mg/dL Very High NONHDL Calculated 139(H) 0 - 129 mg/dL [facility] Comment: NON-HDL INTERPRETATION: Less than 130 mg/dL Desirable 130-159 mg/dL Above Desirable 160-189 mg/dL Borderline High 190-219 mg/dL High Greater than or equal to 220 mg/dL Very High Serum (Serum) 10/18/2023 10: 11 AM EST 10/18/2023 6:14 PM EST Narrative [facility] - 10/18/2023 7:17 PM EST Has the patient fasted?->Yes us Payal Lo MD CHEMISTRY ORDERABLES Final Resul t Performing Organization Address City/State/[facility] Co de Phone Number [facility] [address] * MAMM-SCREENING W/CHARITY (08/08/2023 2:29 PM [...] full-field digital mammographic and computer-aided detection. The [employer] recommends annual screening mammography [...] using full-field digitalmammographic and computer-aided detection. The [employer] recommends annual screening mammographyfor [...] 6:45 AM EST) COLOGUARD Negative Negative [facility] Comment: NEGATIVE TEST RESULT. A [...] Govea et al, N Engl J Med 2014;370(14):3046-5965) The normal value (reference range) for this assay is negative. COLOGUARD RE-SCREENING RECOMMENDATION: Periodic colorectal cancer screening is an important part of preventive healthcare for asymptomatic individuals at average risk for colorectal cancer. Following a negative Cologuard result, the [employer] and U.S. Multi-Society Task Force screening guidelines recommend a Cologuard re-screening interval of 3 years. References: [employer] Guideline for Colorectal Cancer Screening: https://www.cancer.org/cancer/djiyk-aosbsf-jdehrq/pkuzedkbz-puyrgddjb-agyyjdl/ac s-rec ommendations.html.; Gabino ANSARI, Elliot FRANCISCO, Sanju SinclairK, Colorectal Cancer Screening: Recommendations for Physicians and Patients from the U.S. Multi-Society Task Force on Colorectal Cancer Screening , Am J Gastroenterology 2017; 112:1108-3515. TEST DESCRIPTION: Composite algorithmic analysis of stool [...] Govea et al, N Engl J Med 2014;370(14):4766-2643.) Cologuard may produce a false negative or false positive result (no colorectal cancer or precancerous polyp present at colonoscopy follow up). A negative Cologuard test result does not guarantee the absence of CRC or advanced adenoma (pre-cancer). The current Cologuard screening interval is every 3 years. ([employer] and U.S. Multi-Society Task Force). Cologuard performance data in a 10,000 patient pivotal study using colonoscopy as the reference method can be accessed at the following location: www.[employer]results. Additional description of the Cologuard test process, warnings and precautions can be found at www.cologuard.com. Stool (Feces) 11/15/2022 6:4 5 AM EST 11/16/2022 10:12 AM EST Payal Lo MD BODY FLUIDS, STOOLS, AND OTHER F inal Result Performing Organization Address City/State/[facility] Co de Phone Number [facility] [address] [id number] [[email or web address]] * CT-CHEST W/O CONTRAST (12/20/2020 1:19 PM [...] Most Recently Relevant to Health Maintenance Insurance [facility] [id number] [address] [place] [id number] Care Teams Lumber Yard Worker Relationship Specialty Start Date End Date Juan Pablo Gilman MD [address] [place] [address] Internal Medicine, Sleep Medicine 11/28/20 Arsenio Fish MD [address] [place] [address] Neurosurgery 11/30/20 Arlen Garcia NP [address] [place] [address] Nurse Practitioner Nurse Practitioner, Family 12/26/20 Indira Li DO [address] [place] [address] Dermatology 09/13/21
--- OUTSIDE RECORDS SUMMARY | 2025-04-12 15:05 | XMS_ITS | Encounter Summary ---
Author Organization [facility] Address [address] [place] [address] Care Team Providers Care Can Marker Name Role Phone Payal Lo MD Primary Care Provider [phone] Juan Pablo Gilman MD Unavailable [phone] Arsenio Fish MD Unavailable Unavailabl e Arlen Garcia NP Unavailable [phone] Indira Li DO Unavailable [phone] Reason for Visit * Reason Comments Medications Refill Encounter Details Date Type Department Care Team (Late st Contact Info) Description 04/02/2020 Refill [facility] Physicians - Primary Care, [place] [address] [phone] Payal Lo MD [address] [facility], [address] [place] [address] Medications Refill Social History Tobacco Use Types [...] 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 [place] [address] Internal Medicine, Sleep Medicine 11/28/20 Arsenio Fish MD [address] [place] [address] Neurosurgery 11/30/20 Arlen Garcia NP [address] [place] [address] Nurse Practitioner Nurse Practitioner, Family 12/26/20 Indira Li, [address] [facility] [address] [place] [address] Dermatology 09/13/21 documented as of this encounter
--- OUTSIDE RECORDS SUMMARY | 2025-04-12 15:05 | XMS_ITS | Clinical Summary ---
Author Organization [facility] Address [address] [place] [address] Care Team Providers Care Natural Resources Faculty Member Name Role Phone Payal Lo MD Primary Care Provider [phone] Source Comments This information has been disclosed to you from confidential records protectedfrom disclosure by state law. You shall make no further disclosure of thisinformation without the specific, written, and informed release of theindividual to whom it pertains, or as otherwise permitted by law. A generalauthorization for the release of medical or other information is not sufficientfor the purposes of therelease of HIV test results or diagnoses. [id number] Allergies Active Allergy Reactions Criticality Noted Date Comments Amlodipine Swelling High 03/15/2016 dizziness Bee Venom Protein (Honey Bee) Anaphylaxis High 12/19/2021 Flu Vac(Pf)2016(65up)-Adj [id number] Anaphylaxis High 12/19/2021 Influenza A (H1n1) Vac 2008 Low 07/13/2015 Made pt very sick w/ very high fever Lisinopril Other (See Comments) Medium 03/08/2015 cough cough Nebivolol Other (See Comments),Swelling High 02/05/2016 Extreme fatigue and leg swelling Shellfish Containing Products Anaphylaxis High 12/19/2021 Shellfish Derived Anaphylaxis High 08/28/2020 Tree Nut Anaphylaxis,Hives,Sw el ling High 11/20/2021 Tree Nuts Anaphylaxis,Hives,Sw el ling High 11/20/2021 Medications losartan (COZAAR) 50 MG tablet Take 50 mg by mouth 2 times a day. 1 8 Active multivitamin (MULTIVITAMIN) tablet Take 1 tablet by mouth daily. Active albuterol 90 mcg/actuation Inhl inhaler Inhale 2 puffs into the lungs every 6 hours as needed for Wheezing. Active chlorthalidone (HYGROTEN) 25 MG tablet Take 25 mg by mouth in the morning and at bedtime. Active fluticasone propionate (FLOVENT HFA) 110 mcg/actuation inhaler Inhale 1 puff into the lungs 2 times a day. Active umeclidinium-vi lanteroL (ANORO ELLIPTA) 62.5-25 mcg/actuation DsDv Inhale 1 puff into the lungs daily. Active EPINEPHrine (EPIPEN) 0.3 mg/0.3 mL AtIn injection 0.3 mg once. Active potassium chloride (KLOR-CON M20) 20 MEQ tablet Take 20 mEq by mouth 2 times a day. Active fluticasone propionate (FLONASE) 50 mcg/actuation nasal spray Use 1 spray into each nostril at bedtime. Active acetaminophen (TYLENOL) 325 MG tablet Take 3 tablets (975mg) by mouth three times daily 30 tablet 12/03/2021 3:09 PM EST 2 Active Additional Information Patient taking differently: 650 mgOral3 times daily PRN, Reported on 01/10/2022 naloxone (NARCAN) 4 mg/actuation Gracey Apply 1 spray in one nostril if needed. Call 911. May repeat dose in other nostril if no response in 3 minutes. 2 each 1 2 Active gabapentin (NEURONTIN) 300 MG capsule Take 1 capsule (300 mg total) by mouth 3 times a day. 90 capsule 2 Active ergocalciferol, vitamin D2, (VITAMIN D ORAL) Take 2,000 Int'l Units by mouth daily. Active methylPREDNISol one (MEDROL, OLE,) 4 mg tablet follow package directions 21 tablet 2 Active methylPREDNISol one (MEDROL, OLE,) 4 mg tablet follow package directions 21 tablet 2 Active predniSONE (DELTASONE) 10 MG tablet 6 tablets a day for 2 days then decrease by 1 tablet every other day until gone (6,6,5,5,4,4,3,3 ,2,2,1,1) 42 tablet 2 Active naproxen (NAPROSYN) 500 MG tablet Take 1 tablet (500 mg total) by mouth 2 times a day with meals. 60 tablet 2 2 Active diclofenac (VOLTAREN) 75 MG EC tablet Take 1 tablet (75 mg total) by mouth 2 times a day. 60 tablet 2 Active methocarbamoL (ROBAXIN) 500 MG tablet TAKE ONE TABLET BY MOUTH THREE TIMES A DAY 90 tablet 2 Active gabapentin (NEURONTIN) 300 MG capsuleIndicati ons:S/P total knee arthroplasty, right Take 3 capsules (900 mg total) by mouth 3 times a day. 180 capsule 11 2 Active methocarbamoL (ROBAXIN) 500 MG tabletIndicatio ns:S/P total knee arthroplasty, right Take 1 tablet (500 mg total) by mouth 3 times a day. 90 tablet 2 Active Hospital, Clinic, or Other Facility Administered Medication Ordered Dose Route Frequency Start Date End Date Status bupivacaine (MARCAINE) 0.5 % (5 mg/mL) injection 15 mgIndications:Left shoulder pain 15 mg SubQ Once 10/12/2015 Active lidocaine 10 mg/mL (1 %) injection 3 mLIndications:Left shoulder pain 3 mL OTHER Once 10/12/2015 Active triamcinolone acetonide (KENALOG-40) injection 80 mgIndications:Left shoulder pain 80 mg IAtc Once 10/12/2015 Active Active Problems Problem Noted Date Diagnosed Date S/P total knee arthroplasty, right 04/08/2022 HTN (hypertension) 09/03/2021 Idiopathic myelofibrosis 09/03/2021 Overview (09/03/2021): Dr Javier Uriarte at [facility] Primary osteoarthritis of right knee 09/03/2021 Mixed simple and mucopurulent chronic bronchitis 12/26/2020 RIVAS (obstructive sleep apnea) 12/26/2020 DDD (degenerative disc disease), lumbar 09/18/20 Overview (09/03/2021): Added automatically from request for surgery [id number] Complex tear of medial menis cus of right knee as current injury 05/14/2018 Acute pain of right knee 05/05/2018 Non morbid obesity due to excess calories 2016 Plantar fasciitis, bilateral 02/04/2017 Vitamin D deficiency 02/29/2016 Overview (09/03/2021): [facility] Primary osteoarthritis of left shoulder 10/12/19 16 Tear of left glenoid labrum 07/24/2015 Recurrent dislocation of left shoulder 5 Chronic myeloproliferative disorder 06/08/2015 Right knee pain 08/23/2013 Pain in joint 08/23/2013 Recurrent dislocation of acromioclavicular joint 07/05/2013 Other specified disease of white blood cells 02/2007 Family History Medical History Relation Comments Cancer Father Myelofibrosis Cancer Other maternal side Coronary artery disease Other paternal side Anesthesia problems Neg Hx Relation Status Comments Father Mother Alive Other Social History Tobacco Use Types Packs/Day Years Used Date Smoking Tobacco: Former Cigarettes 1 19.9 1 996 - 08/16/2015 Smokeless Tobacco: Never Tobacco Cessation:Ready to Q uit: No; Counseling Given: Yes Comments:01/10/22 Alcohol Use Standard Drinks/Week Comments Not Currently 0 (1 standard drink = 0.6 oz pur e alcohol) 01/10/22: none since 10/2021 Comments No Sex and Gender Information Value Date Recorded Sex Assigned at Not on file Legal Sex Female 10:23 PM EST Gender Identity Not on file Sexual Orientation Not on file Last Filed Vital Signs Vital Sign Reading Time Taken Comments Blood Pressure 143/68 01/21/2022 2:34 PM EDT Pulse 82 01/21/2022 2:34 PM EDT Temperature 36.8 C (98.3 F) 01/21/2022 8:58 AM EDT Respiratory Rate 16 01/21/2022 2:34 PM EDT Oxygen Saturation 98% 01/21/2022 2:34 PM EDT Inhaled Oxygen Concentration 98% 01/21/2022 2 :34 PM EDT Weight 86.2 kg (190 lb) 07/08/2022 1:45 PM EDT Height 167.6 cm (5' 6 ) 07/08/2022 1:45 PM EDT Body Mass Index 30.67 07/08/2022 1:45 PM EDT Plan of Treatment Health Maintenance Due Date Last Done Comments ASCVD Assessment 1966 Abnormal Colonoscopy Follow Up 1966 Hepatitis C Screening (MyChart) 1966 Alcohol Misuse Screening 02/23/1984 HIV Screening 02/23/1984 Immunization: Hepatitis B (1 of 3 - 19+ 3-dose series) 1985 Mammogram (MyChart) 2006 Cologuard (FIT-DNA) 2011 Colonoscopy 2011 Colorectal Cancer Screening (MyChart) 2011 Stool Testing (gFOBT) 2011 Immunization: Pneumococcal ( 1 of 1 - PCV) 02/23/2016 Immunization: Zoster (1 of 2) 02/23/2016 Depression Screening 05/05/2019 05/05/2018 Renal Function/GFR 11/20/2022 11/20/2021, 1 10/23/2012, 05/04/2007 Immunization: COVID-19 ( season) 2024 06/14/2021 Immunization: Influenza (MyC valdez) (#1) 2025 Immunization: DTaP/Tdap/Td ( 3 - Td or Tdap) 10/31/2031 10/31/2021, 06/29/2012 Medical Devices Implanted Type Area Pin Drafting Machine Operator Device Identifier Shelf Expiration Date Model / Serial / Lot Cement Bone Versabond Ab Pmma Gentamicin 40 Gm 1 Dose Medium Viscosity Sterile - [id number] Implanted:Qty : 1 on 12/03/2021 by Dutch Isabel MD at [facility] Bone [employer] 06/28/2025 [id number] / / [id number] Cement Bone Versabond Ab Pmma Gentamicin 40 Gm 1 Dose Medium Viscosity Sterile - [id number] Implanted:Qty : 1 on 12/03/2021 by Dutch Isabel MD at [facility] Bone Right: Knee [employer] [id number] / / [id number] Baseplate Tib 3 Kn Rt Cmpnt Genesi Ii Npor - [id number] Implanted:Qty : 1 on 12/03/2021 by Dutch Isabel MD at [facility] Orthopedic Right: Knee [employer] 06/03/2031 [id number] / / [id number] Insert Artc 3-4 15mm Kn Crcte Rtn Hi Flxn Xlpe Legion - [id number] Implanted:Qty : 1 on 12/03/2021 by Dutch Isabel MD at [facility] Orthopedic Right: Knee [employer] 06/17/2025 [id number] / / [id number] Anchr Sut Labral Minimag Wht - [id number] Implanted:Qty : 1 on 08/16/2015 by Dutch Isabel MD at [facility] Other Left: Shoulder [employer] 08/29/2017 [id number] / / [id number] Component Ptlr 7.5mm 32mm Rsrfc Gns2 Kn - [id number] Implanted:Qty : 1 on 12/03/2021 by Dutch Isabel MD at [facility] Patella Right: Knee [employer] 08/13/2031 [id number] / / [id number] Component Fem 4 Kn Rt Crcte Rtn Gns2 Oxnm - [id number] Implanted:Qty : 1 on 12/03/2021 by Dutch Isaebl MD at [facility] Total Joint [employer] 06/24/2031 [id number] / / [id number] Mini Magnum Implanted:Qty : 1 on 08/16/2015 by Dutch Isabel MD at [facility] Left: Shoulder [employer] 12/28/2017 [id number] / / [id number] Lgn Gii Cr Ver[employer] Product Development Manager Tib ( Total Joint Bundle Charge ) Implanted:Qty : 1 on 12/03/2021 by Dutch Isabel MD at [facility] [id number] / / Procedures Procedure Name Priority Date/Time Associated Diagnosis Comments RENAL FUNCTION PANEL W/EGFR Routine 11/20/2021 2:05 PM EST Primary osteoarthritis of right knee from Last 3 Months or Most Recently Relevant to Health Maintenance Results * Renal Function Panel w/EGFR (11/20/2021 2:05 PM EST) Sodium 141 133 - 146 mmol/L 11/20/2021 5:21 PM EST [facility] Potassium 3.6 3.5 - 5.3 mmol/L 11/20/2021 5:21 PM EST [facility] Chloride 100 98 - 110 mmol/L 11/20/2021 5:21 PM EST [facility] CO2 30 21 - 33 mmol/L 11/20/2021 5:21 PM EST [facility] Anion Gap 11 3 - 16 mmol/L 11/20/2021 5:21 PM EST [facility] BUN 14 7 - 25 mg/dL 11/20/2021 5:21 PM [facility] Creatinine 0.70 0.60 - 1.30 mg/dL 11/20/2021 5:21 PM [facility] Glucose 80 70 - 100 mg/dL 11/20/2021 5:21 PM EST [facility] Calcium 9.5 8.6 - 10.3 mg/dL 11/20/2021 5:21 PM [facility] Phosphorus 2.8 2.1 - 4.7 mg/dL 11/20/2021 5:21 PM [facility] Albumin 4.5 3.5 - 5.7 g/dL 11/20/2021 5:21 PM [facility] Osmolality, Calculated 291 278 - 305 mOsm/kg 11/20/2021 5:21 PM EST [facility] eGFR AA CKD-EPI >90 See note. 5:21 PM EST [facility] Comment: As of 2015 the estimated GFR is calculated from serum creatinine using the Chronic Kidney Disease Epidemiology Collaboration (CKD-EPI) equation in patients 18 years and older. The reference range is >60 mL/min/1.73m2. eGFR values greater than 90 will be reported as >90mL/min/1.73m2. Reference: Seema , Juan LA, Beulah CH, Lizandro YL, Wilber AF, 3rd, Mega HI, et. al. A new equation to estimate glomerular filtration rate. Kenia Lithoduplicator Operator Med. 2009:150(9):604-12 eGFR NONAA CKD-EPI >90 See note. 2021 5:21 PM EST [facility] Comment: As of 2015 the estimated GFR is calculated from serum creatinine using the Chronic Kidney Disease Epidemiology Collaboration (CKD-EPI) equation in patients 18 years and older. The reference range is >60 mL/min/1.73m2. eGFR values greater than 90 will be reported as >90mL/min/1.73m2. Reference: Seema , Juan LA, Beulah CH, Lizandro YL, Wilber AF, , Mega HI, et. al. A new equation to estimate glomerular filtration rate. Kenia Lithoduplicator Operator Med. 2009:150(9):604-12 Plasma 11/20/2021 2:05 PM EST 11/20/2021 4:51 PM EST [facility] BLOOD ORDERABLES Final Result [facility] [address] from Last 3 Months or Most Recently Relevant to Health Maintenance Insurance BLUE ACCESS [address] [place] [id number] Advance Directives For more information, please contact: [phone] * Full Code (Latest Code Status on File) Date Activated Date Inactivated Comments 05/22/2018 12:34 PM 05/22/2018 6:16 PM * Full Code Date Activated Date Inactivated Comments 08/16/2015 9:29 AM 08/16/2015 12:31 PM * Full Code Date Activated Date Inactivated Comments 08/30/2013 10:56 AM 08/30/2013 2:15 PM * Full Code Date Activated Date Inactivated Comments 07/14/2013 10:51 AM 07/14/2013 4:26 PM Care Teams Natural Resources Faculty Member Relationship Specialty Start Date End Date Payal Lo MD PCP - General Family Medicine 08/16/15
--- OUTSIDE RECORDS SUMMARY | 2025-04-12 15:05 | XMS_ITS | Encounter Summary ---
Author Organization [facility] Address [address] [place] [address] Care Team Providers Care Welding Operator Name Role Phone Payal Lo MD Primary Care Provider [phone] Juan Pablo Gilman MD Unavailable [phone] Arsenio Fish MD Unavailable Unavailabl e Arlen Garcia NP Unavailable [phone] Indira Li DO Unavailable [phone] Encounter Details Date Type Department Care Team (Late st Contact Info) Description 07/12/2020 Abstract [facility] Physicians - Spine Surgery, [place] [address] 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 [place] [address] Internal Medicine, Sleep Medicine 11/28/20 Arsenio Fish MD [address] [place] [address] Neurosurgery 11/30/20 Arlen Garcia NP [address] [place] [address] Nurse Practitioner Nurse Practitioner, Family 12/26/20 Indira Li DO [address] [place] [address] Dermatology 09/13/21 documented as of this encounter
== END 2025-04-12 23:59 | disposition home or self-care (01) ==
LOC: LAB 15:03
PROVIDERS: PCP Internal Medicine; Visit Provider Internal Medicine
DX: I49.1 Atrial premature depolarization (principal); I49.3 Ventricular premature depolarization; R53.83 Other fatigue; R79.82 Elevated C-reactive protein (CRP)
CPT/HCPCS: 36415; 86225; 86235; 93225; 93227

== ENCOUNTER 2025-04-14 15:43 | Outpatient (CLI) | payer OTHER, SELFPAY ==
--- OUTSIDE RECORDS SUMMARY | 2025-04-14 15:44 | XMS_ITS | Continuity of Care Document ---
Author Name [facility] Organization [facility] Care Team Providers Care Yarn Dry Room Worker Name Role Phone [facility] Unavailable Unavailable Social History Combined list of available smoking, tobacco, and other social history from Department of Defense and Veterans Affairs facilities. Social History Type Response Date Comment Sourc e This section is an empty social history section. [facility]
--- OUTSIDE RECORDS SUMMARY | 2025-04-14 15:46 | XMS_ITS | Encounter Summary ---
Author Organization [facility] Address [address] [place] [address] Care Team Providers Care Insurance Verification Specialist Name Role Phone Payal Lo MD Primary Care Provider [phone] Juan Pablo Gilmna MD Unavailable [phone] Arsenio Fish MD Unavailable Unavailabl e Arlen Garcia NP Unavailable [phone] Indira Li DO Unavailable [phone] Reason for Visit * Reason Comments Medications Refill Encounter Details Date Type Department Care Team (Late st Contact Info) Description 04/02/2020 Refill [facility] Physicians - Primary Care, [place] [address] [id number] Payal Lo MD [address] [facility], [address] [place] [address] Medications Refill Social History Tobacco Use Types [...] 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 [place] [address] Internal Medicine, Sleep Medicine 11/28/20 Arsenio Fish MD [address] [place] [address] Neurosurgery 11/30/20 Arlen Garcia NP [address] [place] [address] Nurse Practitioner Nurse Practitioner, Family 12/26/20 Indira Li, [address] [facility] [place] [address] Dermatology 09/13/21 documented as of this encounter
--- OUTSIDE RECORDS SUMMARY | 2025-04-14 15:46 | XMS_ITS | Clinical Summary ---
Author Organization [facility] Address [address] [place] [address] Care Team Providers Care Welder Manufacture Name Role Phone Juan Pablo Gilman MD Unavailable [phone] Arsenio Fish MD Unavailable Unavailabl Arlen Hawley NP Unavailable Indira Li DO Unavailable [phone] Allergies Active Allergy Reactions Criticality Noted Date [...] 12/26/2020 Mixed simple and mucopurulent chronic bronchitis ([facility]) 12/26/2020 Spondylolisthesis, lumbar region 09/18/2020 Overview (09/18/2020): Added automatically from request for surgery [id number] DDD (degenerative disc disease), lumbar 09/18/20 20 Overview (09/18/2020): Added automatically from request for surgery [id number] Lumbar radiculopathy 09/18/2020 Overview (09/18/2020): Added automatically from request for surgery [id number] Foraminal stenosis of lumbar region 09/18/2020 Overview (09/18/2020): Added automatically from request for surgery [id number] Spinal stenosis of lumbar re gion without neurogenic claudication 09/18/2020 Overview (09/18/2020): Added automatically from request for surgery [id number] Lumbar stenosis without neurogenic claudication 09/18/2020 Overview (09/19/2020): Added automatically from request for surgery [id number] Radiculopathy, lumbar region 09/18/2020 Overview (09/19/2020): Added automatically from request for surgery [id number] Lumbar disc disease with radiculopathy 0 Spondylolisthesis of lumbar region 07/13/2020 Non morbid obesity due to excess calories 2016 Plantar fasciitis, bilateral 02/04/2017 Vitamin D deficiency 02/29/2016 Overview (02/17/2018): [facility] HTN (hypertension) Idiopathic myelofibrosis ([facility]) Overview (03/08/2015): Dr Javier Uriarte at [facility] Resolved Problems Problem Noted Date Diagnosed Date [...] 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 Not on [...] Desirable Triglycerides 171(H) 0 - 149 mg/dL [facility] Comment: TOTAL TRIGLYCERIDE INTERPRETATION: Less than 150 mg/dL Normal 150-199 mg/dL Borderline HIgh 200-499 mg/dL High Greater or Equal to 500 mg/dL Very High NONHDL Calculated 139(H) 0 - 129 mg/dL [facility] Comment: NON-HDL INTERPRETATION: Less than 130 mg/dL Desirable 130-159 mg/dL Above Desirable 160-189 mg/dL Borderline High 190-219 mg/dL High Greater than or equal to 220 mg/dL Very High Serum (Serum) 10/18/2023 10: 11 AM EST 10/18/2023 6:14 PM EST Narrative [facility] - 10/18/2023 7:17 PM EST Has the patient fasted?->Yes us Payal Lo MD CHEMISTRY ORDERABLES Final Resul t Performing Organization Address City/State/[facility] Co de Phone Number [facility] [address] * MAMM-SCREENING W/CHARITY (08/08/2023 2:29 PM [...] full-field digital mammographic and computer-aided detection. The [employer] recommends annual screening mammography [...] using full-field digitalmammographic and computer-aided detection. The [employer] recommends annual screening mammographyfor [...] 6:45 AM EST) COLOGUARD Negative Negative [facility] Comment: NEGATIVE TEST RESULT. A [...] Govea et al, N Engl J Med 2014;370(14):3497-6552) The normal value (reference range) for this assay is negative. COLOGUARD RE-SCREENING RECOMMENDATION: Periodic colorectal cancer screening is an important part of preventive healthcare for asymptomatic individuals at average risk for colorectal cancer. Following a negative Cologuard result, the [place] [employer] Society and U.S. Multi-Society Task Force screening guidelines recommend a Cologuard re-screening interval of 3 years. References: [place] [employer] Guideline for Colorectal Cancer Screening: https://www.cancer.org/cancer/kpoms-vrtfyq-afzfeh/tyyeoctdq-ciupkiugh-tnelpmg/ac s-rec ommendations.html.; Gabino ANSARI, Elliot FRANCISCO, Sanju SinclairK, Colorectal Cancer Screening: Recommendations for Physicians and Patients from the U.S. Multi-Society Task Force on Colorectal Cancer Screening , Am J Gastroenterology 2017; 112:0068-5993. TEST DESCRIPTION: Composite algorithmic analysis of stool [...] Govea et al, N Engl J Med 2014;370(14):2068-2762.) Cologuard may produce a false negative or false positive result (no colorectal cancer or precancerous polyp present at colonoscopy follow up). A negative Cologuard test result does not guarantee the absence of CRC or advanced adenoma (pre-cancer). The current Cologuard screening interval is every 3 years. ([place] [employer] Society and U.S. Multi-Society Task Force). Cologuard performance data in a 10,000 patient pivotal study using colonoscopy as the reference method can be accessed at the following location: www.Pixowl/results. Additional description of the Cologuard test process, warnings and precautions can be found at www.cologuard.com. Stool (Feces) 11/15/2022 6:4 5 AM EST 11/16/2022 10:12 AM EST Payal Lo MD BODY FLUIDS, STOOLS, AND OTHER F inal Result Performing Organization Address City/State/[facility] Co de Phone Number [facility] [address] [id number] * CT-CHEST W/O CONTRAST (12/20/2020 1:19 PM [...] Most Recently Relevant to Health Maintenance Insurance [facility] [id number] [place] [id number] Care Teams Welder Manufacture Relationship Specialty Start Date End Date Juan Pablo Gilman MD [address] [place] [address] Internal Medicine, Sleep Medicine 11/28/20 Arsenio Fish MD [address] [place] [address] Neurosurgery 11/30/20 Arlen Garcia NP [address] [place] [address] Nurse Practitioner Nurse Practitioner, Family 12/26/20 Indira Li DO [address] [place] [address] Dermatology 09/13/21
--- OUTSIDE RECORDS SUMMARY | 2025-04-14 15:46 | XMS_ITS | Encounter Summary ---
Author Organization [facility] Address [address] [place] [address] Care Team Providers Care Hatch Tender Name Role Phone Payal Lo MD Primary Care Provider [phone] Juan Pablo Gilman MD Unavailable [phone] Arsenio Fish MD Unavailable Unavailabl e Arlen Garcia NP Unavailable [phone] Indira Li DO Unavailable [phone] Encounter Details Date Type Department Care Team (Late st Contact Info) Description 07/12/2020 Abstract [facility] Physicians - Spine Surgery, [place] [address] 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 [place] [address] Internal Medicine, Sleep Medicine 11/28/20 Arsenio Fish MD [address] [place] [id number] Neurosurgery 11/30/20 Arlen Garcia NP [address] [place] [address] Nurse Practitioner Nurse Practitioner, Family 12/26/20 Indira Li DO [address] [place] [address] Dermatology 09/13/21 documented as of this encounter
--- OUTSIDE RECORDS SUMMARY | 2025-04-14 15:47 | XMS_ITS | Clinical Summary ---
Author Organization [facility] Address [address] [place] [address] Care Team Providers Care Sheet Rock Installer Name Role Phone Payal Lo MD Primary Care Provider [phone] Source Comments This information has been disclosed [...] therelease of HIV test results or diagnoses. [id number] Allergies Active Allergy Reactions Criticality Noted [...] Reported on 01/10/2022 naloxone (NARCAN) 4 mg/actuation [place] Apply 1 spray in one nostril if [...] 09/03/2021 Overview (09/03/2021): Dr Javier Uriarte at [facility] Primary osteoarthritis of right knee 09/03/2021 Mixed simple and mucopurulent chronic bronchitis 12/26/2020 RIVAS (obstructive sleep apnea) 12/26/2020 DDD (degenerative disc disease), lumbar 09/18/20 Overview (09/03/2021): Added automatically from request for surgery [id number] Complex tear of medial menis cus of [...] 10/31/2021, 06/29/2012 Medical Devices Implanted Type Area Marketing Assistant Manager Device Identifier Shelf Expiration Date Model / Serial / Lot Cement Bone Versabond Ab Pmma Gentamicin 40 Gm 1 Dose Medium Viscosity Sterile - [id number] Implanted:Qty : 1 on 12/03/2021 by Dutch Isabel MD at [facility] Main Bone [employer] 06/28/2025 [id number] / / [id number] Cement Bone Versabond Ab Pmma Gentamicin 40 Gm 1 Dose Medium Viscosity Sterile - [id number] Implanted:Qty : 1 on 12/03/2021 by Dutch Isabel MD at [facility] Main Bone Right: Knee [employer] [id number] / / [id number] Baseplate Tib 3 Kn Rt Cmpnt Genesi Ii Npor - [id number] Implanted:Qty : 1 on 12/03/2021 by Dutch Isabel MD at [facility] Main Orthopedic Right: Knee [employer] 06/03/2031 [id number] / / [id number] Insert Artc 3-4 15mm Kn Crcte Rtn Hi Flxn Xlpe Legion - [id number] Implanted:Qty : 1 on 12/03/2021 by Dutch Isabel MD at [facility] Main Orthopedic Right: Knee [employer] 06/17/2025 [id number] / / [id number] Anchr Sut Labral Minimag Wht - [id number] Implanted:Qty : 1 on 08/16/2015 by Dutch Isabel MD at [facility] Main Other Left: Shoulder [employer] 08/29/2017 OM-6006 / / [id number] Component Ptlr 7.5mm 32mm Rsrfc Gns2 Kn - [id number] Implanted:Qty : 1 on 12/03/2021 by Dutch Isabel MD at [facility] Main Patella Right: Knee [employer] 08/13/2031 [id number] / / [id number] Component Fem 4 Kn Rt Crcte Rtn Gns2 Oxnm - [id number] Implanted:Qty : 1 on 12/03/2021 by Dutch Isabel MD at [facility] Main Total Joint [employer] 06/24/2031 [id number] / / [id number] Mini Magnum Implanted:Qty : 1 on 08/16/2015 by Dutch Isabel MD at [facility] Main Left: Shoulder [employer] 12/28/2017 OM-6007 / / [id number] Lgn Gii Cr Verilast Director It Project Tib ( Total Joint Bundle Charge ) Implanted:Qty : 1 on 12/03/2021 by Dutch Isabel MD at [facility] Main [id number] / / Procedures Procedure Name Priority Date/Time Associated Diagnosis Comments RENAL FUNCTION PANEL W/EGFR Routine 11/20/2021 2:05 PM EST Primary osteoarthritis of right knee from Last 3 Months or Most Recently Relevant to Health Maintenance Results * Renal Function Panel w/EGFR (11/20/2021 2:05 PM EST) Sodium 141 133 - 146 mmol/L 11/20/2021 5:21 PM EST [facility] Potassium 3.6 3.5 - 5.3 mmol/L 11/20/2021 5:21 PM EST [facility] Chloride 100 98 - 110 mmol/L 11/20/2021 5:21 PM EST [facility] CO2 30 21 - 33 mmol/L 11/20/2021 5:21 PM EST [facility] Anion Gap 11 3 - 16 mmol/L 11/20/2021 5:21 PM EST [facility] BUN 14 7 - 25 mg/dL 11/20/2021 5:21 PM [facility] Creatinine 0.70 0.60 - 1.30 mg/dL 11/20/2021 5:21 PM [facility] Glucose 80 70 - 100 mg/dL 11/20/2021 5:21 PM EST [facility] Calcium 9.5 8.6 - 10.3 mg/dL 11/20/2021 5:21 PM [facility] Phosphorus 2.8 2.1 - 4.7 mg/dL 11/20/2021 5:21 PM [facility] Albumin 4.5 3.5 - 5.7 g/dL 11/20/2021 5:21 PM [facility] Osmolality, Calculated 291 278 - 305 mOsm/kg 11/20/2021 5:21 PM EST [facility] eGFR AA CKD-EPI >90 See note. 5:21 PM EST [facility] Comment: As of 2015 the [...] equation to estimate glomerular filtration rate. [place] Staying Machine Operator Med. 2009:150(9):604-12 eGFR NONAA CKD-EPI >90 See note. 2021 5:21 PM EST [facility] Comment: As of 2015 the [...] equation to estimate glomerular filtration rate. [place] Staying Machine Operator Med. 2009:150(9):604-12 Plasma 11/20/2021 2:05 PM EST 11/20/2021 4:51 PM EST Trina [facility] LAB BLOOD ORDERABLES Final Result [facility] [address] from Last 3 Months or Most Recently Relevant to Health Maintenance Insurance BLUE ACCESS [address] [address] Advance Directives For more information, please contact: [phone] * Full Code (Latest Code Status on File) Date Activated Date Inactivated Comments 05/22/2018 12:34 PM 05/22/2018 6:16 PM * Full Code Date Activated Date Inactivated Comments 08/16/2015 9:29 AM 08/16/2015 12:31 PM * Full Code Date Activated Date Inactivated Comments 08/30/2013 10:56 AM 08/30/2013 2:15 PM * Full Code Date Activated Date Inactivated Comments 07/14/2013 10:51 AM 07/14/2013 4:26 PM Care Teams Sheet Rock Installer Relationship Specialty Start Date End Date Payal Lo MD PCP - General Family Medicine 08/16/15
--- OUTSIDE RECORDS SUMMARY | 2025-04-14 15:47 | XMS_ITS | Encounter Summary ---
Author Organization [facility] Address [address] [place] [address] Care Team Providers Care Food And Beverage Cashier Name Role Phone Pcp, Rosemarie Primary Care Provider [phone] Payal Lo MD Primary Care Provider [phone] Source Comments This information has been disclosed [...] release of HIV test results or diagnoses. [id number] Health Encounter Details Date Type Department Care Team (Late st Contact Info) Description 07/18/2015 Orders Only [facility] [place] [facility] [address] [place] [address] Dutch Isabel MD Left shoulder [...] documented as of this encounter Care Teams Food And Beverage Cashier Relationship Specialty Start Date End Date Pcp, No No Address PCP - General 06/28/13 08/15/15 Payal Lo MD No Address PCP - General Family Medicine 08/16/15 documented as of this encounter
--- OUTSIDE RECORDS SUMMARY | 2025-04-14 15:47 | XMS_ITS | Clinical Summary ---
Author Organization [facility] Address [address] [place] [address] Phone Care Team Providers Care Maintenance Electrician Name Role Phone Chapito Hood MD, Payal Parker MD Primary Care Provider [phone] Allergies Active Allergy Reactions Criticality Noted Date Comments Amlodipine Swelling High 12/19/2021 Bee Venom Protein (Honey Bee) Anaphylaxis High 12/19 Flu Vac(Pf)2016(65up)-Brbes77h Anaphylaxis High 11/28 Lisinopril Cough Medium 12/19/2021 Nebivolol Swelling High 12/19/2021 Shellfish Containing Products Anaphylaxis High 12/19 Tree Nuts Anaphylaxis High 12/19/2021 Medications fluticasone (FLONASE) 50 mcg/actuation Nasl [place], SuspensionIndica tions:Recurrent acute serous otitis media of right ear 1 [place] by Nasal route daily. 1 Bottle 8 [...] Impressions 05/05/2014 8:33 AM EDT : Negative (QJO-Qwdnquea-6) ~ RECOMMENDATION: Routine screening mammogram in 1 [...] most recent being 05-09-09 ~ IMPRESSION: Negative (CSZ-Hnsgmftr-1) ~ RECOMMENDATION: Routine screening mammogram in 1 [...] Advance Directives For more information, please contact: [phone] * Full Code (Latest Code Status on File) Date Activated Date Inactivated Comments 12/19/2021 3:20 AM 12/19/2021 8:38 PM Care Teams Maintenance Electrician Relationship Specialty Start Date End Date Conrado Uriarte MD PCP - Hematology/Oncology Internal Medicine-Medical Oncology 06/06/15 Payal Lo MD PCP - General Family Medicine 01/16/18
--- OUTSIDE RECORDS SUMMARY | 2025-04-14 15:47 | XMS_ITS | Encounter Summary ---
Author Organization [facility] Address [address] [place] [address] Care Team Providers Care Airport Sales Agent Name Role Phone Payal Lo MD Primary Care Provider [phone] Juan Pablo Gilman MD Unavailable [phone] Arsenio Fish MD Unavailable Unavailabl e Arlen Garcia NP Unavailable [phone] Indira Li DO Unavailable [phone] Reason for Visit * Reason Comments Medications Refill Encounter Details Date Type Department Care Team (Late st Contact Info) Description 01/26/2023 Refill [facility] Physicians - Primary Care, [place] [address] , [place] [address] Payal Lo MD [address] [facility], [address] [place] [address] Medications Refill Social History Tobacco Use Types [...] 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 [place] [address] Internal Medicine, Sleep Medicine 11/28/20 Arsenio Fish MD [address] [place] [address] Neurosurgery 11/30/20 Arlen Garcia NP [address] [place] [address] Nurse Practitioner Nurse Practitioner, Family 12/26/20 Indira Li DO [address] [place] [address] Dermatology 09/13/21 documented as of this encounter
--- OUTSIDE RECORDS SUMMARY | 2025-04-14 15:47 | XMS_ITS | Encounter Summary ---
Author Organization [facility] Address [address] [place] [address] Care Team Providers Care Lathing Supervisor Name Role Phone Pcp, Rosemarie Primary Care Provider [phone] Payal Lo MD Primary Care Provider [phone] Source Comments This information has been disclosed [...] release of HIV test results or diagnoses. [id number] Health Encounter Details Date Type Department Care Team (Late st Contact Info) Description 07/20/2015 Orders Only [facility] at [place] [facility] [address] [facility] [address] [place] [address] Dutch Isabel MD Social History [...] Procedure Name Priority Date/Time Associated Diagnosis Comments [facility] EXTERNAL IMAGING 07/20/2015 11:21 AM EDT documented in this encounter Results * [facility] External Imaging (07/20/2015 11:21 AM EDT) [...] documented as of this encounter Care Teams Lathing Supervisor Relationship Specialty Start Date End Date Pcp, No No Address PCP - General 06/28/13 08/15/15 Payal Lo MD No Address PCP - General Family Medicine 08/16/15 documented as of this encounter
--- OUTSIDE RECORDS SUMMARY | 2025-04-14 15:47 | XMS_ITS | Encounter Summary ---
Author Organization [facility] Address [address] [place] [address] Care Team Providers Care Wire Frame Lampshade Maker Name Role Phone Payal Lo MD Primary Care Provider [phone] Source Comments This information has been disclosed [...] release of HIV test results or diagnoses. [id number] Health Encounter Details Date Type Department Care Team (Late st Contact Info) Description 05/11/2018 Orders Only [facility] at [place] [facility] [address] [facility] [address] [place] [address] Dutch Isabel MD Social History [...] CONTRAST, 05/11/2018. CLINICAL HISTORY: M25.561-Pain in right rdtu-ZYQ-29-CM COMPARISON: None. TECHNIQUE: Multiplanar, multisequence MR images [...] CONTRAST, 05/11/2018. CLINICAL HISTORY: M25.561-Pain in right rglk-PBT-48-CM COMPARISON: None. TECHNIQUE: Multiplanar, multisequence MR images [...] documented as of this encounter Care Teams Wire Frame Lampshade Maker Relationship Specialty Start Date End Date Payal Lo MD PCP - General Family Medicine 08/16/15 documented as of this encounter
== END 2025-04-14 23:59 | disposition home or self-care (01) ==
LOC: RT 15:43
PROVIDERS: PCP Internal Medicine; Visit Provider Internal Medicine
DX: I49.1 Atrial premature depolarization (principal); I47.19 Other supraventricular tachycardia; I49.3 Ventricular premature depolarization
CPT/HCPCS: 93270

== ENCOUNTER 2025-05-27 15:18 | Outpatient (CLI) | payer OTHER, SELFPAY ==
--- OUTSIDE RECORDS SUMMARY | 2025-05-27 15:21 | XMS_ITS | Clinical Summary ---
Author Organization [facility] Address [address] [place] [address] Care Team Providers Care Golf Teacher Name Role Phone Payal Lo MD Primary Care Provider [phone] Source Comments This information has been disclosed [...] therelease of HIV test results or diagnoses. [id number] Allergies Active Allergy Reactions Criticality Noted [...] Reported on 01/10/2022 naloxone (NARCAN) 4 mg/actuation [place] Apply 1 spray in one nostril if [...] 09/03/2021 Overview (09/03/2021): Dr Javier Uriarte at [facility] Primary osteoarthritis of right knee 09/03/2021 Mixed simple and mucopurulent chronic bronchitis 12/26/2020 RIVAS (obstructive sleep apnea) 12/26/2020 DDD (degenerative disc disease), lumbar 09/18/20 Overview (09/03/2021): Added automatically from request for surgery [id number] Complex tear of medial menis cus of [...] 10/31/2021, 06/29/2012 Medical Devices Implanted Type Area Instrument Processing Tech Device Identifier Shelf Expiration Date Model / Serial / Lot Cement Bone Versabond Ab Pmma Gentamicin 40 Gm 1 Dose Medium Viscosity Sterile - [id number] Implanted:Qty : 1 on 12/03/2021 by Dutch Isabel MD at [facility] Main Bone [employer] 06/28/2025 [id number] / / [id number] Cement Bone Versabond Ab Pmma Gentamicin 40 Gm 1 Dose Medium Viscosity Sterile - [id number] Implanted:Qty : 1 on 12/03/2021 by Dutch Isabel MD at [facility] Main Bone Right: Knee [employer] [id number] / / [id number] Baseplate Tib 3 Kn Rt Cmpnt Genesi Ii Npor - [id number] Implanted:Qty : 1 on 12/03/2021 by Dutch Isabel MD at [facility] Main Orthopedic Right: Knee [employer] 06/03/2031 [id number] / / [id number] Insert Artc 3-4 15mm Kn Crcte Rtn Hi Flxn Xlpe Legion - [id number] Implanted:Qty : 1 on 12/03/2021 by Dutch Isabel MD at [facility] Main Orthopedic Right: Knee [employer] 06/17/2025 [id number] / / [id number] Anchr Sut Labral Minimag Wht - [id number] Implanted:Qty : 1 on 08/16/2015 by Dutch Isabel MD at [facility] Main Other Left: Shoulder [employer] 08/29/2017 OM-6006 / / [id number] Component Ptlr 7.5mm 32mm Rsrfc Gns2 Kn - [id number] Implanted:Qty : 1 on 12/03/2021 by Dutch Isabel MD at [facility] Main Patella Right: Knee [employer] 08/13/2031 [id number] / / [id number] Component Fem 4 Kn Rt Crcte Rtn Gns2 Oxnm - [id number] Implanted:Qty : 1 on 12/03/2021 by Dutch Isabel MD at [facility] Main Total Joint [employer] 06/24/2031 [id number] / / [id number] Mini Magnum Implanted:Qty : 1 on 08/16/2015 by Dutch Isabel MD at [facility] Main Left: Shoulder [employer] 12/28/2017 OM-6007 / / [id number] Lgn Gii Cr Verilast Tactical Air Control Party Manager Tib ( Total Joint Bundle Charge ) Implanted:Qty : 1 on 12/03/2021 by Dutch Isabel MD at [facility] Main [id number] / / Procedures Procedure Name Priority Date/Time Associated Diagnosis Comments RENAL FUNCTION PANEL W/EGFR Routine 11/20/2021 2:05 PM EST Primary osteoarthritis of right knee from Last 3 Months or Most Recently Relevant to Health Maintenance Results * Renal Function Panel w/EGFR (11/20/2021 2:05 PM EST) Sodium 141 133 - 146 mmol/L 11/20/2021 5:21 PM EST [facility] Potassium 3.6 3.5 - 5.3 mmol/L 11/20/2021 5:21 PM EST [facility] Chloride 100 98 - 110 mmol/L 11/20/2021 5:21 PM EST [facility] CO2 30 21 - 33 mmol/L 11/20/2021 5:21 PM EST [facility] Anion Gap 11 3 - 16 mmol/L 11/20/2021 5:21 PM EST [facility] BUN 14 7 - 25 mg/dL 11/20/2021 5:21 PM [facility] Creatinine 0.70 0.60 - 1.30 mg/dL 11/20/2021 5:21 PM [facility] Glucose 80 70 - 100 mg/dL 11/20/2021 5:21 PM EST [facility] Calcium 9.5 8.6 - 10.3 mg/dL 11/20/2021 5:21 PM [facility] Phosphorus 2.8 2.1 - 4.7 mg/dL 11/20/2021 5:21 PM [facility] Albumin 4.5 3.5 - 5.7 g/dL 11/20/2021 5:21 PM [facility] Osmolality, Calculated 291 278 - 305 mOsm/kg 11/20/2021 5:21 PM EST [facility] eGFR AA CKD-EPI >90 See note. 5:21 PM EST [facility] Comment: As of 2015 the [...] equation to estimate glomerular filtration rate. [place] Para Educator Med. 2009:150(9):604-12 eGFR NONAA CKD-EPI >90 See note. 2021 5:21 PM EST [facility] Comment: As of 2015 the [...] equation to estimate glomerular filtration rate. [place] Para Educator Med. 2009:150(9):604-12 Plasma 11/20/2021 2:05 PM EST 11/20/2021 4:51 PM EST Trina Nova [facility] LAB BLOOD ORDERABLES Final Result [facility] [address] from Last 3 Months or Most Recently Relevant to Health Maintenance Insurance BLUE ACCESS [address] [address] Advance Directives For more information, please contact: [phone] * Full Code (Latest Code Status on File) Date Activated Date Inactivated Comments 05/22/2018 12:34 PM 05/22/2018 6:16 PM * Full Code Date Activated Date Inactivated Comments 08/16/2015 9:29 AM 08/16/2015 12:31 PM * Full Code Date Activated Date Inactivated Comments 08/30/2013 10:56 AM 08/30/2013 2:15 PM * Full Code Date Activated Date Inactivated Comments 07/14/2013 10:51 AM 07/14/2013 4:26 PM Care Teams Golf Teacher Relationship Specialty Start Date End Date Payal Lo MD PCP - General Family Medicine 08/16/15
--- OUTSIDE RECORDS SUMMARY | 2025-05-27 15:21 | XMS_ITS | Encounter Summary ---
Author Organization [facility] Address [address] [place] [address] Care Team Providers Care Plate Painter Apprentice Name Role Phone Pcp, Rosemarie Primary Care Provider [phone] Payal Lo MD Primary Care Provider [phone] Source Comments This information has been disclosed [...] release of HIV test results or diagnoses. [id number] Health Encounter Details Date Type Department Care Team (Late st Contact Info) Description 07/20/[address] [facility] at [place] [facility] [address] [facility] [address] [place] [address] Dutch Isabel MD Social History [...] Procedure Name Priority Date/Time Associated Diagnosis Comments [facility] EXTERNAL IMAGING 07/20/2015 11:21 AM EDT documented in this encounter Results * [facility] External Imaging (07/20/2015 11:21 AM EDT) [...] documented as of this encounter Care Teams Plate Painter Apprentice Relationship Specialty Start Date End Date Pcp, No No Address PCP - General 06/28/13 08/15/15 Payal Lo MD No Address PCP - General Family Medicine 08/16/15 documented as of this encounter
--- OUTSIDE RECORDS SUMMARY | 2025-05-27 15:21 | XMS_ITS | Encounter Summary ---
Author Organization [facility] Address [address] [place] [address] Care Team Providers Care Human Intelligence Name Role Phone Pcp, Rosemarie Primary Care Provider [phone] Payal Lo MD Primary Care Provider [phone] Source Comments This information has been disclosed [...] release of HIV test results or diagnoses. [id number] Health Encounter Details Date Type Department Care Team (Late st Contact Info) Description 07/18/2015 Orders Only [facility] at [place] [facility] [address] [facility] [address] [place] [address] Dutch Isabel MD Left shoulder [...] documented as of this encounter Care Teams Human Intelligence Relationship Specialty Start Date End Date Pcp, No No Address PCP - General 06/28/13 08/15/15 Payal Lo MD No Address PCP - General Family Medicine 08/16/15 documented as of this encounter
--- OUTSIDE RECORDS SUMMARY | 2025-05-27 15:21 | XMS_ITS | Encounter Summary ---
Author Organization [facility] Address [address] [place] [address] Care Team Providers Care Medicaid Business Analyst Name Role Phone Payal Lo MD Primary Care Provider [phone] Source Comments This information has been disclosed [...] release of HIV test results or diagnoses. [id number] Health Encounter Details Date Type Department Care Team (Late st Contact Info) Description 05/11/2018 Orders Only [facility] at [place] [facility] [address] [facility] [address] [place] [address] Dutch Isabel MD Social History [...] CONTRAST, 05/11/2018. CLINICAL HISTORY: M25.561-Pain in right vawr-LXT-62-CM COMPARISON: None. TECHNIQUE: Multiplanar, multisequence MR images [...] CONTRAST, 05/11/2018. CLINICAL HISTORY: M25.561-Pain in right idcz-IEJ-94-CM COMPARISON: None. TECHNIQUE: Multiplanar, multisequence MR images [...] documented as of this encounter Care Teams Medicaid Business Analyst Relationship Specialty Start Date End Date Payal Lo MD PCP - General Family Medicine 08/16/15 documented as of this encounter
--- OUTSIDE RECORDS SUMMARY | 2025-05-27 15:21 | XMS_ITS | Encounter Summary ---
Author Organization [facility] Address [address] [place] [address] Care Team Providers Care International Logistics Manager Name Role Phone Payal Lo MD Primary Care Provider [phone] Juan Pablo Gilman MD Unavailable [phone] Arsenio Fish MD Unavailable Unavailabl e Arlen Garcia NP Unavailable [phone] Indira Li DO Unavailable [phone] Reason for Visit * Reason Comments Medications Refill Encounter Details Date Type Department Care Team (Late st Contact Info) Description 01/26/2023 Refill [facility] Physicians - Primary Care, [place] [address] , [place] [address] Payal Lo MD [address] [facility], [address] [place] [address] Medications Refill Social History Tobacco Use Types [...] 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 [place] [address] Internal Medicine, Sleep Medicine 11/28/20 Arsenio Fish MD [address] [place] [address] Neurosurgery 11/30/20 Arlen Garcia NP [address] [place] [address] Nurse Practitioner Nurse Practitioner, Family 12/26/20 Indira Li DO [address] [place] [address] Dermatology 09/13/21 documented as of this encounter
--- OUTSIDE RECORDS SUMMARY | 2025-05-27 15:21 | XMS_ITS | Continuity of Care Document ---
Author Name [facility] Organization [facility] Care Team Providers Care Fruit Or Nut Farmworker Name Role Phone [facility] Unavailable Unavailable Social History Combined list of available smoking, tobacco, and other social history from Department of Defense and Veterans Affairs facilities. Social History Type Response Date Comment Sourc e This section is an empty social history section. [facility]
--- OUTSIDE RECORDS SUMMARY | 2025-05-27 15:21 | XMS_ITS | Encounter Summary ---
Author Organization [facility] Address [address] [place] [address] Care Team Providers Care Loan Counselor Name Role Phone Payal Lo MD Primary Care Provider [phone] Juan Pablo Gilman MD Unavailable [phone] Arsenio Fsih MD Unavailable Unavailabl e Arlen Garcia NP Unavailable [phone] Indira Li DO Unavailable [phone] Reason for Visit * Reason Comments Medications Refill Encounter Details Date Type Department Care Team (Late st Contact Info) Description 04/02/[address] [facility] Physicians - Primary Care, [place] [address] [id number] Payal Lo MD [address] [facility], [address] [place] [address] Medications Refill Social History Tobacco Use Types [...] Industry Job Start Date Job End Date [employer] Not on file Not on [...] documented as of this encounter Care Teams Loan Counselor Relationship Specialty Start Date End Date Payal Lo MD PCP - General Family Medicine 03/01/15 09/29/24 JuanP ablo Gilman MD [address] [place] [address] Internal Medicine, Sleep Medicine 11/28/20 Arsenio Fish MD [address] [place] [address] Neurosurgery 11/30/20 Arlen Garcia NP [address] [place] [address] Nurse Practitioner Nurse Practitioner, Family 12/26/20 Indira Li, [address] [facility] [place] [address] Dermatology 09/13/21 documented as of this encounter
--- OUTSIDE RECORDS SUMMARY | 2025-05-27 15:21 | XMS_ITS | Encounter Summary ---
Author Organization [facility] Address [address] [place] [address] Care Team Providers Care Doctor Of Nurse Anesthesia Name Role Phone Payal Lo MD Primary Care Provider [phone] Juan Pablo Gilman MD Unavailable [phone] Arsenio Fish MD Unavailable Unavailabl e Arlen Garcia NP Unavailable [phone] Indira Li DO Unavailable [phone] Encounter Details Date Type Department Care Team (Late st Contact Info) Description 07/12/2020 Abstract [facility] Physicians - Spine Surgery, [place] [address] [place] [address] Ambulatory, Flight Nurse Social History Tobacco Use Types Packs/Day Years [...] Industry Job Start Date Job End Date [employer] Not on file Not on [...] documented as of this encounter Care Teams Doctor Of Nurse Anesthesia Relationship Specialty Start Date End Date Payal Lo MD PCP - General Family Medicine 03/01/15 09/29/24 Juan Pablo Gilman MD [address] [place] [address] Internal Medicine, Sleep Medicine 11/28/20 Arsenio Fish MD [address] [place] [address] Neurosurgery 11/30/20 Arlen Garcia NP [address] [place] [address] Nurse Practitioner Nurse Practitioner, Family 12/26/20 Indira Li DO [address] [place] [address] Dermatology 09/13/21 documented as of this encounter
--- OUTSIDE RECORDS SUMMARY | 2025-05-27 15:21 | XMS_ITS | Clinical Summary ---
Author Organization [facility] Address [address] [place] [address] Care Team Providers Care Substation Operator Helper Name Role Phone Juan Pablo Gilman MD Unavailable [phone] Arsenio Fish MD Unavailable Unavailabl Arlen Hawley NP Unavailable [phone] Indira Li DO Unavailable [phone] Allergies Active Allergy Reactions Criticality Noted Date [...] 62.5-25 mcg/actuation Disk with DeviceIndication s:Other emphysema (CMS/HCC) Take 1 Puff by inhalation daily. 3 [...] Flovent HFA 110 mcg/actuation inhalerIndicatio ns:Other emphysema (CMS/HCC) INHALE TWO PUFFS BY MOUTH TWICE A DAY 12 g 5 3 Active ergocalciferol (ERGOCALCIFEROL) 1,250 mcg (50,000 unit) CapsuleIndicatio ns:Vitamin D deficiency Take 1 Capsule (50,000 Units) by mouth 2 times weekly. 24 Capsule 4 Active albuterol sulfate (ProAir HFA) 90 mcg/actuation HFA Aerosol InhalerIndicatio ns:Other emphysema (CMS/HCC) Take 1 Puff by inhalation every 4 [...] 12/26/2020 Mixed simple and mucopurulent chronic bronchitis 12/26/2020 Spondylolisthesis, lumbar region 09/18/2020 Overview (09/18/2020): Added automatically from request for surgery [id number] DDD (degenerative disc disease), lumbar 09/18/20 20 Overview (09/18/2020): Added automatically from request for surgery [id number] Lumbar radiculopathy 09/18/2020 Overview (09/18/2020): Added automatically from request for surgery [id number] Foraminal stenosis of lumbar region 09/18/2020 Overview (09/18/2020): Added automatically from request for surgery [id number] Spinal stenosis of lumbar re gion without neurogenic claudication 09/18/2020 Overview (09/18/2020): Added automatically from request for surgery [id number] Lumbar stenosis without neurogenic claudication 09/18/2020 Overview (09/19/2020): Added automatically from request for surgery [id number] Radiculopathy, lumbar region 09/18/2020 Overview (09/19/2020): Added automatically from request for surgery [id number] Lumbar disc disease with radiculopathy 0 Spondylolisthesis of lumbar region 07/13/2020 Non morbid obesity due to excess calories 2016 Plantar fasciitis, bilateral 02/04/2017 Vitamin D deficiency 02/29/2016 Overview (02/17/2018): [facility] HTN (hypertension) Idiopathic myelofibrosis Overview (03/08/2015): Dr Javier Uriarte at [facility] Resolved Problems Problem Noted Date Diagnosed Date [...] Industry Job Start Date Job End Date [employer] Not on file Not on [...] Screening 12/20/2021 12/20/2020 COVID-19 Vaccine (2 - 4-2 5 season) 2024 06/14/2021 Depression Screening 09/29/2024 [...] 10/18/2023 10:11 AM EST Annual physical exam Hypertriglyceridemi a MAMM-SCREENING W/CHARITY Routine 08/08/2023 2:29 PM EST Visit for screening mammogram COLOGUARD Routine 11/15/2022 6:45 AM EST Screening for colon cancer CT-CHEST W/O CONTRAST Routine 12/20/2020 1:19 PM EDT Idiopathic myelofibrosis SOB (shortness of breath) from Last 3 [...] Desirable Triglycerides 171(H) 0 - 149 mg/dL [facility] Comment: TOTAL TRIGLYCERIDE INTERPRETATION: Less than 150 mg/dL Normal 150-199 mg/dL Borderline HIgh 200-499 mg/dL High Greater or Equal to 500 mg/dL Very High NONHDL Calculated 139(H) 0 - 129 mg/dL [facility] Comment: NON-HDL INTERPRETATION: Less than 130 mg/dL Desirable 130-159 mg/dL Above Desirable 160-189 mg/dL Borderline High 190-219 mg/dL High Greater than or equal to 220 mg/dL Very High Serum (Serum) 10/18/2023 10: 11 AM EST 10/18/2023 6:14 PM EST Narrative [facility] - 10/18/2023 7:17 PM EST Has the patient fasted?->Yes us Payal Lo MD CHEMISTRY ORDERABLES Final Resul t Performing Organization Address City/State/[facility] Co de Phone Number [facility] [address] * MAMM-SCREENING W/CHARITY (08/08/2023 2:29 PM [...] full-field digital mammographic and computer-aided detection. The [employer] recommends annual screening mammography [...] using full-field digitalmammographic and computer-aided detection. The [employer] recommends annual screening mammographyfor [...] By: Kraig Zarate MD Payal Lo MD G MAMMO ORDERABLES Final Resul t * COLOGUARD (11/15/2022 6:45 AM EST) COLOGUARD Negative Negative [facility] Comment: NEGATIVE TEST RESULT. A [...] screened with both Cologuard and colonoscopy. (Marti Corona. et al, N Engl J Med 2014;370(14):0718-4737) The normal value (reference range) for this assay is negative. COLOGUARD RE-SCREENING RECOMMENDATION: Periodic colorectal cancer screening is an important part of preventive healthcare for asymptomatic individuals at average risk for colorectal cancer. Following a negative Cologuard result, the [place] [employer] Society and U.S. Multi-Society Task Force screening guidelines recommend a Cologuard re-screening interval of 3 years. References: [employer] Guideline for Colorectal Cancer Screening: https://www.cancer.org/cancer/xqtae-mlffgu-hcfnqs/ghqeregwb-xkmpgzumd-zhicvvf/ac s-rec ommendations.html.; Gabino ANSARI, Elliot FRANCISCO, Sanju SinclairK, Colorectal Cancer Screening: Recommendations for Physicians and Patients from the U.S. Multi-Society Task Force on Colorectal Cancer Screening , Am J Gastroenterology 2017; 112:1572-7324. TEST DESCRIPTION: Composite algorithmic analysis of stool [...] screened with both Cologuard and colonoscopy. (Marti Corona. et al, N Engl J Med 2014;370(14):2603-2919.) Cologuard may produce a false negative or false positive result (no colorectal cancer or precancerous polyp present at colonoscopy follow up). A negative Cologuard test result does not guarantee the absence of CRC or advanced adenoma (pre-cancer). The current Cologuard screening interval is every 3 years. ([place] [employer] Society and U.S. Multi-Society Task Force). Cologuard performance data in a 10,000 patient pivotal study using colonoscopy as the reference method can be accessed at the following location: www.[employer]/results. Additional description of the Cologuard test process, warnings and precautions can be found at www.cologuard.com. Stool (Feces) 11/15/2022 6:4 5 AM EST 11/16/2022 10:12 AM EST Payal Lo MD BODY FLUIDS, STOOLS, AND OTHER F inal Result Performing Organization Address City/State/[facility] Phone Number [facility] [address] [id number] * CT-CHEST W/O CONTRAST (12/20/2020 1:19 PM [...] Most Recently Relevant to Health Maintenance Insurance [facility] Care Teams Substation Operator Helper Relationship Specialty Start Date End Date Juan Pablo Gilman MD [address] [place] [address] Internal Medicine, Sleep Medicine 11/28/20 Arsenio Fish MD [address] [place] [address] Neurosurgery 11/30/20 Arlen Garcia NP [address] [place] [address] Nurse Practitioner Nurse Practitioner, Family 12/26/20 Indira Li DO [address] [place] [address] Dermatology 09/13/21
--- OUTSIDE RECORDS SUMMARY | 2025-05-27 15:21 | XMS_ITS | Clinical Summary ---
Author Organization [facility] Address [address] [facility] [place] [address] Phone Care Team Providers Care Impregnator And Drier Name Role Phone Chapito Hood MD, Payal Parker MD Primary Care Provider [phone] Allergies Active Allergy Reactions Criticality Noted Date Comments Amlodipine Swelling High 12/19/2021 Bee Venom Protein (Honey Bee) Anaphylaxis High 12/19 Flu Vac(Pf)2016(65up)-Pscmu18a Anaphylaxis High 11/28 Lisinopril Cough Medium 12/19/2021 Nebivolol Swelling High 12/19/2021 Shellfish Containing Products Anaphylaxis High 12/19 Tree Nuts Anaphylaxis High 12/19/2021 Medications fluticasone (FLONASE) 50 mcg/actuation Nasl [place], SuspensionIndica tions:Recurrent acute serous otitis media of right ear 1 Niot[place] by Nasal route daily. 1 Bottle 8 [...] Impressions 05/05/2014 8:33 AM EDT : Negative (BAK-Wspvabmt-4) ~ RECOMMENDATION: Routine screening mammogram in 1 [...] most recent being 05-09-09 ~ IMPRESSION: Negative (NMN-Kdtvynhs-2) ~ RECOMMENDATION: Routine screening mammogram in 1 [...] Advance Directives For more information, please contact: [phone] * Full Code (Latest Code Status on File) Date Activated Date Inactivated Comments 12/19/2021 3:20 AM 12/19/2021 8:38 PM Care Teams Impregnator And Drier Relationship Specialty Start Date End Date Conrado Uriarte MD PCP - Hematology/Oncology Internal Medicine-Medical Oncology 06/06/15 Payal Lo MD PCP - General Family Medicine 01/16/18
[2025-05-27 15:42] LABS: Hematocrit 41.2 % (37.0-47.0); Hemoglobin 13.6 g/dL (12.2-16.2); Immature Granulocytes % 0.6 %; Mean Corpuscular HGB Conc 33.0 g/dL (31.8-35.4); Mean Corpuscular Hemoglobin 28.9 pg (27.0-31.2); Mean Corpuscular Volume 87.7 fl (81-99); Nucleated Red Blood Cells % 0 %; Platelet Count 378 K/mm3 (142-424); Red Blood Count 4.70 M/mm3 (4.20-5.40); Red Cell Distribution Width-SD 43.3 fL; White Blood Count 8.9 K/mm3 (4.8-10.8)
== END 2025-05-27 23:59 | disposition home or self-care (01) ==
LOC: LAB 15:20
PROVIDERS: PCP Internal Medicine; Visit Provider Internal Medicine Medical Oncology
DX: Z09 Encounter for follow-up examination after completed treatment for conditions other than malignant neoplasm (principal); Z86.2 Personal history of diseases of the blood and blood-forming organs and certain disorders involving the immune mechanism
CPT/HCPCS: 36415; 85025

== ENCOUNTER 2025-06-08 13:58 | Outpatient (CLI) | payer OTHER, SELFPAY ==
--- OUTSIDE RECORDS SUMMARY | 2025-06-08 14:01 | XMS_ITS | Clinical Summary ---
Author Organization [facility] Address [address] [facility] [place] [address] Phone Care Team Providers Care Employment Representative Name Role Phone Chapito Hood MD, Payal Parker MD Primary Care Provider [phone] Allergies Active Allergy Reactions Criticality Noted Date Comments Amlodipine Swelling High 12/19/2021 Bee Venom Protein (Honey Bee) Anaphylaxis High 12/19 Flu Vac(Pf)2016(65up)-Wmlsh32a Anaphylaxis High 11/28 Lisinopril Cough Medium 12/19/2021 Nebivolol Swelling High 12/19/2021 Shellfish Containing Products Anaphylaxis High 12/19 Tree Nuts Anaphylaxis High 12/19/2021 Medications fluticasone (FLONASE) 50 mcg/actuation Nasl [place], SuspensionIndica tions:Recurrent acute serous otitis media of right ear 1 [place] by Nasal route daily. 1 Bottle 8 [...] history exists COVID-19 Vaccine ( - season) 2025 Influenza Vaccine (#1) 2025 DTaP/TDaP/Td (3 - [...] Impressions 05/05/2014 8:33 AM EDT : Negative (KKM-Xftqbyug-0) ~ RECOMMENDATION: Routine screening mammogram in 1 [...] most recent being 05-09-09 ~ IMPRESSION: Negative (MJA-Sbjtcnsf-2) ~ RECOMMENDATION: Routine screening mammogram in 1 [...] Advance Directives For more information, please contact: [phone] * Full Code (Latest Code Status on File) Date Activated Date Inactivated Comments 12/19/2021 3:20 AM 12/19/2021 8:38 PM Care Teams Employment Representative Relationship Specialty Start Date End Date Conrado Uriarte MD PCP - Hematology/Oncology Internal Medicine-Medical Oncology 06/06/15 Payal Lo MD PCP - General Family Medicine 01/16/18
--- OUTSIDE RECORDS SUMMARY | 2025-06-08 14:01 | XMS_ITS | Encounter Summary ---
Author Organization [facility] Address [address] [place] [address] Care Team Providers Care Information Systems Planner Name Role Phone Payal Lo MD Primary Care Provider Unavailab le Source Comments This information has been disclosed [...] release of HIV test results or diagnoses. [id number] Health Encounter Details Date Type Department Care Team (Late st Contact Info) Description 05/11/2018 Orders Only [facility] [place] [facility] [address] [facility] [address] [place] [address] Dutch Isabel MD Social History [...] CONTRAST, 05/11/2018. CLINICAL HISTORY: M25.561-Pain in right [id number]-EFR-35-CM COMPARISON: None. TECHNIQUE: Multiplanar, multisequence MR images of the right knee were obtained without the use of contrast. The patient status post surgery in 2013 per report, an evaluation of the postoperative [...] CONTRAST, 05/11/2018. CLINICAL HISTORY: M25.561-Pain in right [id number]-RLR-99-CM COMPARISON: None. TECHNIQUE: Multiplanar, multisequence MR images [...] documented as of this encounter Care Teams Information Systems Planner Relationship Specialty Start Date End Date Payal Lo MD PCP - General Family Medicine 08/16/15 documented as of this encounter
--- OUTSIDE RECORDS SUMMARY | 2025-06-08 14:01 | XMS_ITS | Clinical Summary ---
Author Organization [facility] Address [address] [place] [address] Care Team Providers Care Language Path Name Role Phone Juan Pablo Gilman MD Unavailable [phone] Arsenio Fish MD Unavailable Unavailabl Arlen Hawley NP Unavailable Indira Li DO Unavailable [phone] Allergies Active Allergy Reactions Criticality Noted Date [...] (09/18/2020): Added automatically from request for surgery [id number] DDD (degenerative disc disease), lumbar 09/18/20 20 Overview (09/18/2020): Added automatically from request for surgery [id number] Lumbar radiculopathy 09/18/2020 Overview (09/18/2020): Added automatically from request for surgery [id number] Foraminal stenosis of lumbar region 09/18/2020 Overview (09/18/2020): Added automatically from request for surgery [id number] Spinal stenosis of lumbar re gion without neurogenic claudication 09/18/2020 Overview (09/18/2020): Added automatically from request for surgery [id number] Lumbar stenosis without neurogenic claudication 09/18/2020 Overview (09/19/2020): Added automatically from request for surgery [id number] Radiculopathy, lumbar region 09/18/2020 Overview (09/19/2020): Added automatically from request for surgery [id number] Lumbar disc disease with radiculopathy 0 Spondylolisthesis of lumbar region 07/13/2020 Non morbid obesity due to excess calories 2016 Plantar fasciitis, bilateral 02/04/2017 Vitamin D deficiency 02/29/2016 Overview (02/17/2018): [facility] HTN (hypertension) Idiopathic myelofibrosis Overview (03/08/2015): Dr Javier Uriarte at [facility] Resolved Problems Problem Noted Date Diagnosed [...] 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 Not [...] 2) 02/23/2016 Lung Cancer Screening 12/20/2021 12/20/2020 Depression Screening 09/29/2024 11/05/2023, 11/04/2022, 10/31/2021, Additional history exists COVID-19 Vaccine (2024- 6 season) 2025 06/14/2021 Breast Cancer Screening 08/08/2025 08/08/20 23, 05/29/2022, 01/25/2021, Additional history exists Cologuard 11/15/2025 [...] Desirable Triglycerides 171(H) 0 - 149 mg/dL [facility] Comment: TOTAL TRIGLYCERIDE INTERPRETATION: Less than 150 mg/dL Normal 150-199 mg/dL Borderline HIgh 200-499 mg/dL High Greater or Equal to 500 mg/dL Very High NONHDL Calculated 139(H) 0 - 129 mg/dL [facility] Comment: NON-HDL INTERPRETATION: Less than 130 mg/dL Desirable 130-159 mg/dL Above Desirable 160-189 mg/dL Borderline High 190-219 mg/dL High Greater than or equal to 220 mg/dL Very High Serum (Serum) 10/18/2023 10: 11 AM EST 10/18/2023 6:14 PM EST Narrative [facility] - 10/18/2023 7:17 PM EST Has the patient fasted?->Yes us Payal Lo MD CHEMISTRY ORDERABLES Final Resul t Performing Organization Address City/State/[facility] Co de Phone Number [facility] [address] * MAMM-SCREENING W/CHARITY (08/08/2023 2:29 PM [...] full-field digital mammographic and computer-aided detection. The [employer] recommends annual screening mammography [...] using full-field digitalmammographic and computer-aided detection. The [place] recommends annual screening mammographyfor [...] (11/15/2022 6:45 AM EST) COLOGUARD Negative Negative [facility] Comment: NEGATIVE TEST RESULT. A [...] Corona. et al, N Engl J Med 2014;370(14):1313-7976) The normal value (reference range) for this assay is negative. COLOGUARD RE-SCREENING RECOMMENDATION: Periodic colorectal cancer screening is an important part of preventive healthcare for asymptomatic individuals at average risk for colorectal cancer. Following a negative Cologuard result, the [place] [employer] and U.S. Multi-Society Task Force screening guidelines recommend a Cologuard re-screening interval of 3 years. References: [place] [employer] Guideline for Colorectal Cancer Screening: https://www.cancer.org/cancer/zbzqc-lujnqa-iowvrs/cddgkufgx-aiafwoecv-udvlpce/ac s-rec ommendations.html.; Gabino ANSARI, Elliot FRANCISCO, Sanju SinclairK, Colorectal Cancer Screening: Recommendations for Physicians and Patients from the U.S. Multi-Society Task Force on Colorectal Cancer Screening , Am J Gastroenterology 2017; 112:1701-5665. TEST DESCRIPTION: Composite algorithmic analysis of stool [...] screened with both Cologuard and colonoscopy. (Marti Coorna. et al, N Engl J Med 2014;370(14):1879-9685.) Cologuard may produce a false negative or false positive result (no colorectal cancer or precancerous polyp present at colonoscopy follow up). A negative Cologuard test result does not guarantee the absence of CRC or advanced adenoma (pre-cancer). The current Cologuard screening interval is every 3 years. ([place] [employer] and U.S. Multi-Society Task Force). Cologuard performance data in a 10,000 patient pivotal study using colonoscopy as the reference method can be accessed at the following location: www.[employer]/results. Additional description of the Cologuard test process, warnings and precautions can be found at www.cologuard.com. Stool (Feces) 11/15/2022 6:4 5 AM EST 11/16/2022 10:12 AM EST Payal Lo MD BODY FLUIDS, STOOLS, AND OTHER F inal Result Performing Organization Address City/State/[facility] Phone Number [facility] [address] [id number] * CT-CHEST W/O CONTRAST (12/20/2020 1:19 [...] Most Recently Relevant to Health Maintenance Insurance [facility] Care Teams Language Path Relationship Specialty Start Date End Date Juan Pablo Gilman MD [address] [place] [address] Internal Medicine, Sleep Medicine 11/28/20 Arsenio Fish MD [address] [place] [address] Neurosurgery 11/30/20 Arlen Garcia NP [address] [place] [address] Nurse Practitioner Nurse Practitioner, Family 12/26/20 Indira Li DO [address] [place] [address] Dermatology 09/13/21
--- OUTSIDE RECORDS SUMMARY | 2025-06-08 14:01 | XMS_ITS | Encounter Summary ---
Author Organization [facility] Address [facility] [address] [place] [address] Care Team Providers Care Cooker Chip Name Role Phone Pcp, No Primary Care Provider [phone] Payal Lo MD Primary Care Provider Unavailab [...] release of HIV test results or diagnoses. [id number] Health Encounter Details Date Type Department Care Team (Late st Contact Info) Description 07/18/2015 Orders Only [facility] [place] [facility] [address] [facility] [address] [place] [phone] Dutch Isabel MD Left shoulder pain (Primary [...] Last Indicated Resolved Time Rule Out COVID-19 11/30/202111/30/2021 12/01/2021 10:48 AM EST documented as of this encounter Care Teams Cooker Chip Relationship Specialty Start Date End Date Pcp, No No Address PCP - General 06/28/13 08/15/15 Payal Lo MD No Address PCP - General Family Medicine 08/16/15 documented as of this encounter
--- OUTSIDE RECORDS SUMMARY | 2025-06-08 14:01 | XMS_ITS | Clinical Summary ---
Author Organization [facility] Address [address] [place] [address] Care Team Providers Care Landscape Architecture Professor Name Role Phone Payal Lo MD Primary [...] therelease of HIV test results or diagnoses. [id number] Allergies Active Allergy Reactions Criticality Noted [...] Reported on 01/10/2022 naloxone (NARCAN) 4 mg/actuation [place] Apply 1 spray in one nostril if [...] 09/03/2021 Overview (09/03/2021): Dr Javier Uriarte at [facility] Primary osteoarthritis of right knee 09/03/2021 Mixed simple and mucopurulent chronic bronchitis 12/26/2020 RIVAS (obstructive sleep apnea) 12/26/2020 DDD (degenerative disc disease), lumbar 09/18/20 20 Overview (09/03/2021): Added automatically from request for surgery [id number] Complex tear of medial menis cus of [...] 11/20/2021, 1 10/23/2012, 05/04/2007 Immunization: COVID-19 ( - season) 2025 06/14/2021 Immunization: Influenza (MyC valdez) (#1) 2025 Immunization: DTaP/Tdap/Td ( 3 - Td or Tdap) 10/31/2031 10/31/2021, 06/29/2012 Medical Devices Implanted Type Area [place] Device Identifier Shelf Expiration Date Model / Serial / Lot Cement Bone Versabond Ab Pmma Gentamicin 40 Gm 1 Dose Medium Viscosity Sterile - [id number] Implanted:Qty : 1 on 12/03/2021 by Dutch Isabel MD at [facility] Main Bone [employer] 06/28/2025 [id number] / / [id number] Cement Bone Versabond Ab Pmma Gentamicin 40 Gm 1 Dose Medium Viscosity Sterile - [id number] Implanted:Qty : 1 on 12/03/2021 by Dutch Isabel MD at [facility] Bone Right: Knee [employer] [id number] / / [id number] Baseplate Tib 3 Kn Rt Cmpnt Genesi Ii Npor - [id number] Implanted:Qty : 1 on 12/03/2021 by Dutch Isabel MD at [facility] Main Orthopedic Right: Knee [employer] 06/03/2031 [id number] / / [id number] Insert Artc 3-4 15mm Kn Crcte Rtn Hi Flxn Xlpe Legion - [id number] Implanted:Qty : 1 on 12/03/2021 by Dutch Isabel MD at [facility] Main Orthopedic Right: Knee [employer] 06/17/2025 [id number] / / [id number] Anchr Sut Labral Minimag Wht - [id number] Implanted:Qty : 1 on 08/16/2015 by Dutch Isabel MD at [facility] Main Other Left: Shoulder [employer] 08/29/2017 [id number] / / [id number] Component Ptlr 7.5mm 32mm Rsrfc Gns2 Kn - [id number] Implanted:Qty : 1 on 12/03/2021 by Dutch Isabel MD at [facility] Main Patella Right: Knee [employer] 08/13/2031 [id number] / / [id number] Component Fem 4 Kn Rt Crcte Rtn Gns2 Oxnm - [id number] Implanted:Qty : 1 on 12/03/2021 by Dutch Isabel MD at [facility] Main Total Joint [employer] 06/24/2031 [id number] / / [id number] Mini Magnum Implanted:Qty : 1 on 08/16/2015 by Dutch Isabel MD at [facility] Main Left: Shoulder [employer] 12/28/2017 [id number] / / [id number] Lgn Gii Cr Verilast Ambulatory Services Representative Tib ( Total Joint Bundle Charge ) Implanted:Qty : 1 on 12/03/2021 by Dutch Isabel MD at [facility] Main [id number] / / Procedures Procedure Name Priority Date/Time Associated Diagnosis Comments RENAL FUNCTION PANEL W/EGFR Routine 11/20/2021 2:05 PM EST Primary osteoarthritis of right knee from Last 3 Months or Most Recently Relevant to Health Maintenance Results * Renal Function Panel w/EGFR (11/20/2021 2:05 PM EST) Sodium 141 133 - 146 mmol/L 11/20/2021 5:21 PM EST [facility] Potassium 3.6 3.5 - 5.3 mmol/L 11/20/2021 5:21 PM EST [facility] Chloride 100 98 - 110 mmol/L 11/20/2021 5:21 PM EST [facility] CO2 30 21 - 33 mmol/L 11/20/2021 5:21 PM EST [facility] Anion Gap 11 3 - 16 mmol/L 11/20/2021 5:21 PM EST [facility] BUN 14 7 - 25 mg/dL 11/20/2021 5:21 PM EST [facility] Creatinine 0.70 0.60 - 1.30 mg/dL 11/20/2021 5:21 PM EST [facility] Glucose 80 70 - 100 mg/dL 11/20/2021 5:21 PM EST [facility] Calcium 9.5 8.6 - 10.3 mg/dL 11/20/2021 5:21 PM EST [facility] Phosphorus 2.8 2.1 - 4.7 mg/dL 11/20/2021 5:21 PM EST [facility] Albumin 4.5 3.5 - 5.7 g/dL 11/20/2021 5:21 PM EST [facility] Osmolality, Calculated 291 278 - 305 mOsm/kg 11/20/2021 5:21 PM EST [facility] eGFR AA CKD-EPI >90 See note. 5:21 PM EST [facility] Comment: As of 2015 the estimated GFR is calculated from serum creatinine using the Chronic Kidney Disease Epidemiology Collaboration (CKD-EPI) equation in patients 18 years and older. The reference range is >60 mL/min/1.73m2. eGFR values greater than 90 will be reported as >90mL/min/1.73m2. Reference: Seema , Juan LA, Beulah CH, Bone YL, Wilbre AF, 3rd, Mega HI, et. al. A new equation to estimate glomerular filtration rate. Kenia Mud Tank Operator Med. 2009:150(9):604-12 eGFR NONAA CKD-EPI >90 See note. 2021 5:21 PM EST [facility] Comment: As of 2015 the estimated GFR is calculated from serum creatinine using the Chronic Kidney Disease Epidemiology Collaboration (CKD-EPI) equation in patients 18 years and older. The reference range is >60 mL/min/1.73m2. eGFR values greater than 90 will be reported as >90mL/min/1.73m2. Reference: Seema , Juan LA, Beulah CH, Lizandro YL, Wilber AF, Mega nieves HI, et. al. A new equation to estimate glomerular filtration rate. Kenia Mud Tank Operator Med. 2009:150(9):604-12 Plasma 11/20/2021 2:05 PM EST 11/20/2021 4:51 PM EST [facility] BLOOD ORDERABLES Final Result [facility] [address] from Last 3 Months or Most Recently Relevant to Health Maintenance Insurance BLUE ACCESS Advance Directives For more information, please contact: [phone] * Full Code (Latest Code Status on File) Date Activated Date Inactivated Comments 05/22/2018 12:34 PM 05/22/2018 6:16 PM * Full Code Date Activated Date Inactivated Comments 08/16/2015 9:29 AM 08/16/2015 12:31 PM * Full Code Date Activated Date Inactivated Comments 08/30/2013 10:56 AM 08/30/2013 2:15 PM * Full Code Date Activated Date Inactivated Comments 07/14/2013 10:51 AM 07/14/2013 4:26 PM Care Teams Landscape Architecture Professor Relationship Specialty Start Date End Date Payal Lo MD PCP - General Family Medicine 08/16/15
--- OUTSIDE RECORDS SUMMARY | 2025-06-08 14:01 | XMS_ITS | Encounter Summary ---
Author Organization [facility] Address [facility] [place] [address] Care Team Providers Care Paint And Table Edger Name Role Phone Pcp, No Primary Care [...] release of HIV test results or diagnoses. [id number] Health Encounter Details Date Type Department Care Team (Late st Contact Info) Description 07/20/2015 Orders Only [facility] Orthopaedics at [place] [facility] [address] [place] [address] Dutch Isabel MD Social History [...] Procedure Name Priority Date/Time Associated Diagnosis Comments [facility] EXTERNAL IM[facility] 07/20/2015 11:21 AM EDT documented in this encounter Results * [facility] External Imaging (07/20/2015 11:21 AM EDT) [...] documented as of this encounter Care Teams Paint And Table Edger Relationship Specialty Start Date End Date Pcp, No No Address PCP - General 06/28/13 08/15/15 Payal Lo MD No Address PCP - General Family Medicine 08/16/15 documented as of this encounter
--- OUTSIDE RECORDS SUMMARY | 2025-06-08 14:01 | XMS_ITS | Encounter Summary ---
Author Organization [facility] Address [address] [place] [address] Care Team Providers Care Resistor Inspector Name Role Phone Payal Lo MD Primary Care Provider [phone] Juan Pablo Gilman MD Unavailable [phone] Arsenio Fish MD Unavailable Unavailabl e Arlen Garcia NP Unavailable [phone] Indira Li DO Unavailable [phone] Reason for Visit * Reason Comments Medications Refill Encounter Details Date Type Department Care Team (Late st Contact Info) Description 04/02/2020 Refill [facility] Physicians - Primary Care, [place] [address] [id number] Payal Lo MD [address] [facility], [address] [place] [address] Medications Refill Social History Tobacco Use Types [...] Industry Job Start Date Job End Date [employer] Not on file Not on [...] documented as of this encounter Care Teams Resistor Inspector Relationship Specialty Start Date End Date Payal Lo MD PCP - General Family Medicine 03/01/15 09/29/24 Juan Pablo Gilman MD [address] [place] [address] Internal Medicine, Sleep Medicine 11/28/20 Arsenio Fish MD [address] [place] [address] Neurosurgery 11/30/20 Arlen Garcia NP [address] [place] [address] Nurse Practitioner Nurse Practitioner, Family 12/26/20 Indira Li, [address] [facility] [place] [address] Dermatology 09/13/21 documented as of this encounter
--- OUTSIDE RECORDS SUMMARY | 2025-06-08 14:01 | XMS_ITS | Encounter Summary ---
Author Organization [facility] Address [address] [place] [address] Care Team Providers Care Cargo And Container Inspector Name Role Phone Payal Lo MD Primary Care Provider [phone] Juan Pablo Gilman MD Unavailable [phone] Arsenio Fish MD Unavailable Unavailabl e Arlen Garcia NP Unavailable [phone] Indira Li DO Unavailable [phone] Encounter Details Date Type Department Care Team (Late st Contact Info) Description 07/12/2020 Abstract [facility] Physicians - Spine Surgery, [place] [address] 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 [place] [address] Internal Medicine, Sleep Medicine 11/28/20 Arsenio Fish MD [address] [place] [address] Neurosurgery 11/30/20 Arlen Garcia NP [address] [place] [address] Nurse Practitioner Nurse Practitioner, Family 12/26/20 Indira Li DO [address] [place] [address] Dermatology 09/13/21 documented as of this encounter
--- OUTSIDE RECORDS SUMMARY | 2025-06-08 14:01 | XMS_ITS | Encounter Summary ---
Author Organization [facility] Address [address] [place] [address] Care Team Providers Care Firer Automatic Stoker Name Role Phone Payal Lo MD Primary Care Provider [phone] Juan Pablo Gilman MD Unavailable [phone] Arsenio Fish MD Unavailable Unavailabl e Arlen Garcia NP Unavailable [phone] Indira Li DO Unavailable [phone] Reason for Visit * Reason Comments Medications Refill Encounter Details Date Type Department Care Team (Late st Contact Info) Description 01/26/2023 Refill [facility] Physicians - Primary Care, 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 [place] [address] Internal Medicine, Sleep Medicine 11/28/20 Arsenio Fish MD [address] [place] [address] Neurosurgery 11/30/20 Arlen Garcia NP [address] [place] [address] Nurse Practitioner Nurse Practitioner, Family 12/26/20 Indira Li DO [address] [place] [address] Dermatology 09/13/21 documented as of this encounter
[2025-06-08 14:22] LABS: Hematocrit 40.8 % (37.0-47.0); Hemoglobin 13.0 g/dL (12.2-16.2); Immature Granulocytes % 0.7 %; Mean Corpuscular HGB Conc 31.9 g/dL (31.8-35.4); Mean Corpuscular Hemoglobin 28.1 pg (27.0-31.2); Mean Corpuscular Volume 88.3 fl (81-99); Nucleated Red Blood Cells % 0 %; Platelet Count 356 K/mm3 (142-424); Red Blood Count 4.62 M/mm3 (4.20-5.40); Red Cell Distribution Width-SD 44.4 fL; White Blood Count 8.7 K/mm3 (4.8-10.8)
[2025-06-08 14:48] LABS: D-Dimer 0.35 ug/mL (0.0-0.5)
[2025-06-08 15:38] LABS: Alanine Aminotransferase 42 U/L (12-78); Albumin Level 4.5 g/dl (3.5-5.0); Alkaline Phosphatase 84 U/L (38-126); Anion Gap 12.2 mEq/L (5-15); Aspartate Amino Transferase 30 U/L (14-36); Bilirubin,Direct 0.2 mg/dl (0.0-0.4); Bilirubin,Indirect 0.6 mg/dL (0.0-0.9); Bilirubin,Total 0.8 mg/dl (0.2-1.3); Bilirubin,Unconjugated 0.7 mg/dL (0.0-1.1); Blood Urea Nitrogen 15 mg/dl (7-17); Calcium 10.1 mg/dl (8.4-10.2); Carbon Dioxide 29 mmol/L (22.0-30.0); Chloride 101 mmol/L (98-107); Cholesterol 216 mg/dl (140-200); Creatinine,Serum 0.80 mg/dl (0.52-1.04); Estimated Glomerular Filt Rate 73 ml/min (>60); GFR (African American) 89 ML/MIN (>60); Glucose 99 mg/dl (74-100); HDL Cholesterol 51 mg/dl (40-60); Magnesium 1.8 mg/dl (1.6-2.3); Potassium 4.2 mmoL/L (3.5-5.1); Sodium 138 mmol/L (136-145); Total Protein,Serum 7.1 g/dl (6.3-8.2); Triglycerides 250 mg/dl (30-150)
[2025-06-08 15:59] LABS: Free T4 (Free Thyroxine) 1.02 ng/dl (0.78-2.19)
[2025-06-08 16:09] LABS: Thyroid Stimulating Hormone 0.69 uIU/mL (0.465-4.68)
== END 2025-06-08 23:59 | disposition home or self-care (01) ==
LOC: LAB 13:59
PROVIDERS: PCP Internal Medicine; Visit Provider Internal Medicine
DX: R00.2 Palpitations (principal); R06.00 Dyspnea, unspecified; R53.83 Other fatigue; R60.9 Edema, unspecified; I10 Essential (primary) hypertension
CPT/HCPCS: 36415; 80048; 80061; 80076; 83735; 84439; 84443; 85025; 85378

== ENCOUNTER 2025-06-24 07:46 | Outpatient (CLI) | payer OTHER, SELFPAY ==
--- OUTSIDE RECORDS SUMMARY | 2025-06-24 07:49 | XMS_ITS | Encounter Summary ---
Author Organization [facility] Address [address] [place] [address] Care Team Providers Care Screedman/Laborer Name Role Phone Payal Lo MD Primary Care Provider [phone] Juan Pablo Gilman MD Unavailable [phone] Arsenio Fish MD Unavailable Unavailabl e Arlen Garcia NP Unavailable [phone] Indira Li DO Unavailable [phone] Encounter Details Date Type Department Care Team (Late st Contact Info) Description 07/12/2020 Abstract [facility] Physicians - Spine Surgery, [place] [address] 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 [place] [address] Internal Medicine, Sleep Medicine 11/28/20 Arsenio Fish MD [address] [place] [address] Neurosurgery 11/30/20 Arlen Garcia NP [address] [place] [address] Nurse Practitioner Nurse Practitioner, Family 12/26/20 Indira Li DO [address] [place] [address] Dermatology 09/13/21 documented as of this encounter
--- OUTSIDE RECORDS SUMMARY | 2025-06-24 07:49 | XMS_ITS | Encounter Summary ---
Author Organization [facility] Address [address] [place] [address] Care Team Providers Care Manufacturing Job Titles Name Role Phone Payal Lo MD Primary [...] release of HIV test results or diagnoses. [id number] Health Encounter Details Date Type Department Care Team (Late st Contact Info) Description 05/11/2018 Orders Only [facility] at [place] [facility] [address] [facility] [address] [place] [address] Dutch Isabel MD Social History [...] CONTRAST, 05/11/2018. CLINICAL HISTORY: M25.561-Pain in right [id number] COMPARISON: None. TECHNIQUE: Multiplanar, multisequence MR images [...] CONTRAST, 05/11/2018. CLINICAL HISTORY: M25.561-Pain in right [id number] COMPARISON: None. TECHNIQUE: Multiplanar, multisequence MR images [...] documented as of this encounter Care Teams Manufacturing Job Titles Relationship Specialty Start Date End Date Payal Lo MD PCP - General Family Medicine 08/16/15 documented as of this encounter
--- OUTSIDE RECORDS SUMMARY | 2025-06-24 07:49 | XMS_ITS | Encounter Summary ---
Author Organization [facility] Address [address] [place] [address] Care Team Providers Care Drip Molder Name Role Phone Payal Lo MD Primary Care Provider [phone] Juan Pablo Gilman MD Unavailable [phone] Arsenio Fish MD Unavailable Unavailabl e Arlen Garcia NP Unavailable [phone] Indira Li DO Unavailable [phone] Reason for Visit * Reason Comments Medications Refill Encounter Details Date Type Department Care Team (Late st Contact Info) Description 01/26/2023 Refill [facility] Physicians - Primary Care, [place] [address] , [place] [address] Payal Lo MD [address] [facility], [address] [place] [address] Medications Refill Social History Tobacco Use Types [...] Industry Job Start Date Job End Date [employer] F[employer] Not on file Not on [...] documented as of this encounter Care Teams Drip Molder Relationship Specialty Start Date End Date Payal Lo MD PCP - General Family Medicine 03/01/15 09/29/24 Juan Pablo Gilman MD [address] [place] [address] Internal Medicine, Sleep Medicine 11/28/20 Arsenio Fish MD [address] [place] [address] Neurosurgery 11/30/20 Arlen Garcia NP [address] [place] [address] Nurse Practitioner Nurse Practitioner, Family 12/26/20 Indira Li DO [address] [place] [address] Dermatology 09/13/21 documented as of this encounter
--- OUTSIDE RECORDS SUMMARY | 2025-06-24 07:49 | XMS_ITS | Clinical Summary ---
Author Organization [facility] Address [address] [place] [address] Care Team Providers Care Paste Mixer Name Role Phone Juan Pablo Gilman MD Unavailable [phone] Arsenio Fish MD Unavailable Unavailabl Arlen Hawley NP Unavailable Indira Li DO Unavailable [phone] Allergies Active Allergy Reactions Criticality Noted Date [...] (09/18/2020): Added automatically from request for surgery [id number] DDD (degenerative disc disease), lumbar 09/18/20 20 Overview (09/18/2020): Added automatically from request for surgery [id number] Lumbar radiculopathy 09/18/2020 Overview (09/18/2020): Added automatically from request for surgery [id number] Foraminal stenosis of lumbar region 09/18/2020 Overview (09/18/2020): Added automatically from request for surgery [id number] Spinal stenosis of lumbar re gion without neurogenic claudication 09/18/2020 Overview (09/18/2020): Added automatically from request for surgery [id number] Lumbar stenosis without neurogenic claudication 09/18/2020 Overview (09/19/2020): Added automatically from request for surgery [id number] Radiculopathy, lumbar region 09/18/2020 Overview (09/19/2020): Added automatically from request for surgery [id number] Lumbar disc disease with radiculopathy 0 Spondylolisthesis of lumbar region 07/13/2020 Non morbid obesity due to excess calories 2016 Plantar fasciitis, bilateral 02/04/2017 Vitamin D deficiency 02/29/2016 Overview (02/17/2018): [facility] HTN (hypertension) Idiopathic myelofibrosis Overview (03/08/2015): Dr Javier Uriarte at [facility] Resolved Problems Problem Noted Date Diagnosed Date [...] 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 Not [...] Triglycerides 171(H) 0 - 149 mg/dL [facility] Comment: TOTAL TRIGLYCERIDE INTERPRETATION: Less than 150 mg/dL Normal 150-199 mg/dL Borderline HIgh 200-499 mg/dL High Greater or Equal to 500 mg/dL Very High NONHDL Calculated 139(H) 0 - 129 mg/dL [facility] Comment: NON-HDL INTERPRETATION: Less than 130 mg/dL Desirable 130-159 mg/dL Above Desirable 160-189 mg/dL Borderline High 190-219 mg/dL High Greater than or equal to 220 mg/dL Very High Serum (Serum) 10/18/2023 10: 11 AM EST 10/18/2023 6:14 PM EST Narrative [facility] - 10/18/2023 7:17 PM EST Has the patient fasted?->Yes us Payal Lo MD CHEMISTRY ORDERABLES Final Resul t Performing Organization Address City/State/[facility] Co de Phone Number [facility] [address] * MAMM-SCREENING W/CHARITY (08/08/2023 2:29 PM [...] full-field digital mammographic and computer-aided detection. The [employer] recommends annual screening mammography [...] using full-field digitalmammographic and computer-aided detection. The [employer] recommends annual screening mammographyfor [...] 6:45 AM EST) COLOGUARD Negative Negative [facility] Comment: NEGATIVE TEST RESULT. A [...] Corona. et al, N Engl J Med 2014;370(14):5599-2586) The normal value (reference range) for this assay is negative. COLOGUARD RE-SCREENING RECOMMENDATION: Periodic colorectal cancer screening is an important part of preventive healthcare for asymptomatic individuals at average risk for colorectal cancer. Following a negative Cologuard result, the [place] [employer] Society and U.S. Multi-Society Task Force screening guidelines recommend a Cologuard re-screening interval of 3 years. References: [place] [employer] Guideline for Colorectal Cancer Screening: https://www.cancer.org/cancer/faidv-uahxaq-vlynhh/rppglsvbg-ewjjhvyxn-pfhizjy/ac s-rec ommendations.html.; Gabino ANSARI, Elliot FRANCISCO, Sanju SinclairK, Colorectal Cancer Screening: Recommendations for Physicians and Patients from the U.S. Multi-Society Task Force on Colorectal Cancer Screening , Am J Gastroenterology 2017; 112:3258-6994. TEST DESCRIPTION: Composite algorithmic analysis of stool [...] Corona. et al, N Engl J Med 2014;370(14):2900-3409.) Cologuard may produce a false negative or false positive result (no colorectal cancer or precancerous polyp present at colonoscopy follow up). A negative Cologuard test result does not guarantee the absence of CRC or advanced adenoma (pre-cancer). The current Cologuard screening interval is every 3 years. ([place] [employer] and U.S. Multi-Society Task Force). Cologuard performance data in a 10,000 patient pivotal study using colonoscopy as the reference method can be accessed at the following location: www.CoachMePlus/results. Additional description of the Cologuard test process, warnings and precautions can be found at www.cologuard.com. Stool (Feces) 11/15/2022 6:4 5 AM EST 11/16/2022 10:12 AM EST Payal Lo MD BODY FLUIDS, STOOLS, AND OTHER F inal Result Performing Organization Address City/State/[facility] Phone Number [facility] [address] [id number] * CT-CHEST W/O CONTRAST (12/20/2020 1:19 [...] Most Recently Relevant to Health Maintenance Insurance [facility] Care Teams Paste Mixer Relationship Specialty Start Date End Date Juan Pablo Gilman MD [address] [place] [address] Internal Medicine, Sleep Medicine 11/28/20 Arsenio Fish MD [address] [place] [address] Neurosurgery 11/30/20 Arlen Garcia NP [address] [place] [address] Nurse Practitioner Nurse Practitioner, Family 12/26/20 Indira Li DO [address] [place] [address] Dermatology 09/13/21
--- OUTSIDE RECORDS SUMMARY | 2025-06-24 07:49 | XMS_ITS | Encounter Summary ---
Author Organization [facility] Address [facility] [place] [address] Care Team Providers Care Rn Embedded Name Role Phone Pcp, No Primary Care [...] release of HIV test results or diagnoses. [id number] Health Encounter Details Date Type Department Care Team (Late st Contact Info) Description 07/18/2015 Orders Only [facility] Orthopaedics at [place] [facility] [address] [facility] [address] [place] [phone] Dutch Isabel MD Left shoulder pain (Primary [...] documented as of this encounter Care Teams Rn Embedded Relationship Specialty Start Date End Date Pcp, No No Address PCP - General 06/28/13 08/15/15 Payal Lo MD No Address PCP - General Family Medicine 08/16/15 documented as of this encounter
--- OUTSIDE RECORDS SUMMARY | 2025-06-24 07:49 | XMS_ITS | Encounter Summary ---
Author Organization [facility] Address [facility] [place] [address] Care Team Providers Care Transfusion Nurse Name Role Phone Pcp, No Primary Care [...] release of HIV test results or diagnoses. [id number] Health Encounter Details Date Type Department Care Team (Late st Contact Info) Description 07/20/2015 Orders Only [facility] [place] [facility] [address] [place] [address] Dutch Isabel MD Social History [...] Procedure Name Priority Date/Time Associated Diagnosis Comments [facility] EXTERNAL IMAGING 07/20/2015 11:21 AM EDT documented in this encounter Results * [facility] External Imaging (07/20/2015 11:21 AM EDT) [...] documented as of this encounter Care Teams Transfusion Nurse Relationship Specialty Start Date End Date Pcp, No No Address PCP - General 06/28/13 08/15/15 Payal Lo MD No Address PCP - General Family Medicine 08/16/15 documented as of this encounter
--- OUTSIDE RECORDS SUMMARY | 2025-06-24 07:49 | XMS_ITS | Clinical Summary ---
Author Organization [facility] Address [address] [place] [address] Care Team Providers Care Floor Associate Name Role Phone Payal Lo MD [...] therelease of HIV test results or diagnoses. [id number] Allergies Active Allergy Reactions Criticality Noted [...] Reported on 01/10/2022 naloxone (NARCAN) 4 mg/actuation [place] Apply 1 spray in one nostril if [...] 09/03/2021 Overview (09/03/2021): Dr Javier Uriarte at [facility] Primary osteoarthritis of right knee 09/03/2021 Mixed simple and mucopurulent chronic bronchitis 12/26/2020 RIVAS (obstructive sleep apnea) 12/26/2020 DDD (degenerative disc disease), lumbar 09/18/20 20 Overview (09/03/2021): Added automatically from request for surgery [id number] Complex tear of medial menis cus of [...] 10/31/2021, 06/29/2012 Medical Devices Implanted Type Area Sap Treasury Consultant Device Identifier Shelf Expiration Date Model / Serial / Lot Cement Bone Versabond Ab Pmma Gentamicin 40 Gm 1 Dose Medium Viscosity Sterile - [id number] Implanted:Qty : 1 on 12/03/2021 by Dutch Isabel MD at [facility] Bone [employer] 06/28/2025 [id number] / / [id number] Cement Bone Versabond Ab Pmma Gentamicin 40 Gm 1 Dose Medium Viscosity Sterile - [id number] Implanted:Qty : 1 on 12/03/2021 by Dutch Isabel MD at [facility] Bone Right: Knee [employer] [id number] / / [id number] Baseplate Tib 3 Kn Rt Cmpnt Genesi Ii Npor - [id number] Implanted:Qty : 1 on 12/03/2021 by Dutch Isabel MD at [facility] Orthopedic Right: Knee [employer] 06/03/2031 [id number] / / [id number] Insert Artc 3-4 15mm Kn Crcte Rtn Hi Flxn Xlpe Legion - [id number] Implanted:Qty : 1 on 12/03/2021 by Dutch Isabel MD at [facility] Orthopedic Right: Knee [employer] 06/17/2025 [id number] / / [id number] Anchr Sut Labral Minimag Wht - [id number] Implanted:Qty : 1 on 08/16/2015 by Dutch Isabel MD at [facility] Other Left: Shoulder [employer] 08/29/2017 [id number] / / [id number] Component Ptlr 7.5mm 32mm Rsrfc Gns2 Kn - [id number] Implanted:Qty : 1 on 12/03/2021 by Dutch Isabel MD at [facility] Patella Right: Knee [employer] 08/13/2031 [id number] / / [id number] Component Fem 4 Kn Rt Crcte Rtn Gns2 Oxnm - [id number] Implanted:Qty : 1 on 12/03/2021 by Dutch Isabel MD at [facility] Total Joint [employer] 06/24/2031 [id number] / / [id number] Mini Magnum Implanted:Qty : 1 on 08/16/2015 by Dutch Isabel MD at [facility] Left: Shoulder [employer] 12/28/2017 [id number] / / [id number] Lgn Gii Cr Verilast Bologna Maker Tib ( Total Joint Bundle Charge ) Implanted:Qty : 1 on 12/03/2021 by Dutch Isabel MD at [facility] [id number] / / Procedures Procedure Name Priority Date/Time [...] - 5.3 mmol/L 11/20/2021 5:21 PM EST [facility] Chloride 100 98 - 110 mmol/L 11/20/2021 5:21 PM EST [facility] CO2 30 21 - 33 mmol/L 11/20/2021 5:21 PM EST [facility] Anion Gap 11 3 - 16 mmol/L 11/20/2021 5:21 PM EST [facility] BUN 14 7 - 25 mg/dL 11/20/2021 5:21 PM EST [facility] Creatinine 0.70 0.60 - 1.30 mg/dL 11/20/2021 5:21 PM EST [facility] Glucose 80 70 - 100 mg/dL 11/20/2021 5:21 PM EST [facility] Calcium 9.5 8.6 - 10.3 mg/dL 11/20/2021 5:21 PM EST [facility] Phosphorus 2.8 2.1 - 4.7 mg/dL 11/20/2021 5:21 PM EST [facility] Albumin 4.5 3.5 - 5.7 g/dL 11/20/2021 5:21 PM EST [facility] Osmolality, Calculated 291 278 - 305 mOsm/kg 11/20/2021 5:21 PM EST [facility] eGFR AA CKD-EPI >90 See note. 5:21 PM EST [facility] Comment: As of 2015 the estimated GFR is calculated from serum creatinine using the Chronic Kidney Disease Epidemiology Collaboration (CKD-EPI) equation in patients 18 years and older. The reference range is >60 mL/min/1.73m2. eGFR values greater than 90 will be reported as >90mL/min/1.73m2. Reference: Seema , Juan LA, Beulah CH, Bone YL, Wilber AF, 3rd, Mega HI, et. al. A new equation to estimate glomerular filtration rate. Kenia Cork Grinder Med. 2009:150(9):604-12 eGFR NONAA CKD-EPI >90 See note. 2021 5:21 PM EST [facility] Comment: As of 2015 the [...] equation to estimate glomerular filtration rate. Kenia Cork Grinder Med. 2009:150(9):604-12 Plasma 11/20/2021 2:05 PM EST 11/20/2021 4:51 PM EST [facility]ina [facility] BLOOD ORDERABLES Final Result [facility] [address] from Last 3 Months or Most Recently Relevant to Health Maintenance Insurance BLUE ACCESS Advance Directives For more information, please contact: [phone] * Full Code (Latest Code Status on File) Date Activated Date Inactivated Comments 05/22/2018 12:34 PM 05/22/2018 6:16 PM * Full Code Date Activated Date Inactivated Comments 08/16/2015 9:29 AM 08/16/2015 12:31 PM * Full Code Date Activated Date Inactivated Comments 08/30/2013 10:56 AM 08/30/2013 2:15 PM * Full Code Date Activated Date Inactivated Comments 07/14/2013 10:51 AM 07/14/2013 4:26 PM Care Teams Floor Associate Relationship Specialty Start Date End Date Payal Lo MD PCP - General Family Medicine 08/16/15
--- OUTSIDE RECORDS SUMMARY | 2025-06-24 07:49 | XMS_ITS | Encounter Summary ---
Author Organization [facility] Address [address] [place] [address] Care Team Providers Care Real Estate Salesperson Name Role Phone Payal Lo MD Primary Care Provider [phone] Juan Pablo Gilman MD Unavailable [phone] Arsenio Fish MD Unavailable Unavailabl e Arlen Garcia NP Unavailable [phone] Indira Li DO Unavailable [phone] Reason for Visit * Reason Comments Medications Refill Encounter Details Date Type Department Care Team (Late st Contact Info) Description 04/02/2020 Refill [facility] Physicians - Primary Care, [place] [address] [id number] Payal Lo MD [address] [facility], [address] [place] [address] Medications Refill Social History Tobacco Use Types [...] Industry Job Start Date Job End Date [employer] Not on file Not on [...] documented as of this encounter Care Teams Real Estate Salesperson Relationship Specialty Start Date End Date Payal Lo MD PCP - General Family Medicine 03/01/15 09/29/24 Juan Pablo Gilman MD [address] [place] [address] Internal Medicine, Sleep Medicine 11/28/20 Arsenio Fish MD [address] [place] [address] Neurosurgery 11/30/20 Arlen Garcia NP [address] [place] [address] Nurse Practitioner Nurse Practitioner, Family 12/26/20 Indira Li, [address] [facility] [place] [address] Dermatology 09/13/21 documented as of this encounter
--- NOTE | 2025-06-24 08:15 | CA_ITS ---
APPROVED REPORT EXAM: Comprehensive 2D, Doppler, and color-flow Echocardiogram Vp Care Management: JOESPH Severino, RVS Ht: 5 ft 7 in Wt: 229lbs BSA: 2.14 BP: 181/80 mmHg Indications: Palpitations, HTN, COPD, Edema Echo Enhancing Agent Indication: No IV access Comments: Poor acoustic windows 2D Dimensions Left Atrium 3.49 cm LA Volume 75.40 mL LA Volume Index 34.40 mL/m2 (M/F) 16-34 M-Mode Dimensions RVDd 2.51 cm (0.9-2.6) LA Diam 3.13 cm (1.9-4.0) LVDd 4.83 cm (3.5-5.7) LVDs 3.12 cm (3.5-5.7) IVSd 1.03 cm (0.6-1.1) PWd 0.99 cm (0.6-1.1) EF (Teich) 64.70% EPSs 0.32 cm FS 35.40% EDV (Teich) 109.10 mL TAPSE 1.70 (<1.7) ESV (Teich) 38.50 mL LV Diastology E Decel Time 257 (160-240 msec) E/A Ratio 0.93 MED A' 8.10 cm/s LAT A' 7.60 cm/s Aortic Valve TOMÁS Index 0.98 cm2/m2 AoV Peak Charles. 156.0 (50-130 cm/s) AO Peak GR. 9.70 mmHg AO Mean GR. 4.50 (<5 mmHg) AO VTI 32.9 (18-25 cm) TOMÁS (VTI) 2.15 (2.5-4.5 cm2) Mitral Valve MV A Velocity 70.0 (40-130 cm/s) E/A Ratio 0.93 Pulmonary Valve PV Peak Velocity 87.0 (50-150 cm/s) Left Ventricle The left ventricle is normal size. Left ventricular systolic function is normal. The left ventricular ejection fraction is within the normal range. Proximal septal thickening is present. There is normal LV segmental wall motion. The left ventricular diastolic function is normal. LVEF is 55% Right Ventricle The right ventricle is mildly dilated. The right ventricular systolic function is normal. Atria The left atrium is mildly dilated. The right atrium is mildly dilated. There is no color Doppler evidence of interatrial shunt. Aortic Valve The aortic valve is mildly thickened. There is no hemodynamically significant aortic valvular stenosis. Trace aortic regurgitation is present. Mitral Valve The mitral valve is normal in structure. No evidence of mitral valve stenosis. Mild mitral regurgitation is present. Tricuspid Valve The tricuspid valve leaflets are thin and pliable. Trace tricuspid regurgitation. There is insufficient TR jet to estimate RVSP. Pulmonic Valve The pulmonary valve is grossly normal in structure. Trace pulmonic valve regurgitation is present. Great Vessels The aortic root is normal in size. IVC is normal in size and collapses >50% with inspiration. Pericardium There is no pericardial effusion. Other Information Study Quality: Fair Conclusion Normal biventricular systolic function. Mild RV dilation. Mild biatrial dilation. Mild MR. Electronically signed by : Maggie Watts MD 06/27/2025 12:41:00
[2025-06-24 08:39] VITALS: BMI 36.3
[2025-06-24 08:48] VITALS: BP 162/86; PULSE 67; RESP 18; TEMP 36.4; O2SAT 97
[2025-06-24] MEDS: FAMOTIDINE 20MG/2ML VIAL 20 MG IV (08:57)
[2025-06-24] MEDS: METOPROLOL TARTRATE 50MG TABLET PO (08:59)
[2025-06-24] MEDS: IVABRADINE HCL 7.5MG TABLET PO (09:00)
[2025-06-24 09:45] VITALS: BP 153/62; PULSE 61; RESP 16; O2SAT 97
[2025-06-24] MEDS: NITROGLYCERIN 0.4MG SL TABLET SL (09:45)
[2025-06-24 09:48] VITALS: BP 158/90; PULSE 61; RESP 18; O2SAT 96
[2025-06-24 09:52] VITALS: BP 147/76; PULSE 57; RESP 16; O2SAT 95
[2025-06-24] MEDS: METHYLPREDNISOLONE SOD SUCC 125MG VIAL 125 MG IV (09:52)
[2025-06-24 10:00] VITALS: BP 152/73; PULSE 57; RESP 16; O2SAT 97
--- NOTE | 2025-06-24 10:00 | CT_ITS ---
APPROVED REPORT Tabulating Clerk: CLINICAL INDICATION Chest Pain TECHNIQUE Image Acquisition: A 128 slice MDCT scanner ([employer]) was used for data acquisition. A noncontrast coronary calcium scan was performed. A CT attenuation threshold of 130 Hounsfield units (HU) was used for the detection of calcium in contiguous voxels of 1 sq mm in area to be counted as individual lesions. Bolus tracking in the ascending aorta with a threshold of 180 HU was performed. Immediately afterwards, ECG synchronized cardiac CT was then performed from the cardiac base to apex using retrospective gating with ECG tube current modulation. A total of 85 mL of Isovue 370 mg/mL contrast medium was administered at 5 mL/sec followed by a saline flush using a biphasic injection protocol. A tube voltage of 120 KVp was used. The average heart rate at the time of acquisition was 55 bpm and regular. Image Reconstruction Transaxial images were reconstructed at 0.67 mm slide thickness. Data was reviewed interactively on an advanced workstation capable of 2 and 3-dimensional displays in all conventional reconstruction formats, including multiplanar reformations, maximum intensity projections, curved multiplanar reformations, and volume rendered reconstructions. When applicable, selected routine images describing the relevant coronary anatomy and pathology were saved and sent to PACS. Complications None Technical Quality Overall image quality was fair. Coronary artery opacification was adequate. Total DLP (Dose-Length Product) is 1614.1 mGy-cm. The reported value represents the total of one or more individual components during the CT acquisition of this date and at this time, and as such, the same value may appear in more than one CT report depending on the interpreting/reporting physicians. COMPARISON None FINDINGS CT Coronary Calcium Scoring LMA (Left Main Artery) = 0 LAD (Left Anterior Descending) = 44 LCX (Left Coronary Circumflex) = 0 RCA (Right Coronary Artery) = 2 Total Calcium Score = 46 using the AJ-130 method. The observed calcium score of 46 is at 85th percentile for subjects of the same age, sex, and race/ethnicity. The interpretation of the calcium heart score is based on the following continuum*: 0 = no calcified plaque detected (risk of coronary artery disease is very low ??? less than 5%) 1-10 = calcium detected in extremely minimal levels (risk of coronary diseases is still low ??? less than 10%) 11-100 = mild levels of plaque detected with certainty (mild or minimal narrowing of heart arteries is likely) 101-400 = definite,at least moderate levels of plaque detected (relatively high risk of a heart attack within 3-5 years) >401-999 = extensive levels of plaque detected (high risk of heart attack, high levels of vascular disease are present, high likelihood of at least one significant coronary narrowing) *The calcium heart score quantifies the burden of coronary calcification/plaque in the coronary arteries. The calcium heart score is not able to evaluate the presence or burden of non-calcified (i.e. soft) plaque. There is no identifiable calcification in the aortic valve, mitral annulus or mitral valve, pericardium, or myocardium. Coronary CT Angiography The coronary arterial system is right dominant. Quantitative Stenosis Grading: Left Main (LM): The left main originates normally from the left sinus of Valsalva. The LM bifurcates into the left anterior descending artery and left circumflex artery. The LM is patent with no evidence of atherosclerosis. Left Anterior Descending (LAD) and Diagonal Branches: The LAD gives off 3 diagonal branch(es). There is mixed calcified/noncalcified plaque in the ostial and proximal LAD segment with < 25% luminal stenosis, as well as presence of non-calcified plaque in the mid LAD segment with up to 25-49% luminal stenosis. There is no evidence of LAD-myocardial bridge. Left Circumflex (LCX) and Obtuse Marginals (OM): The LCX gives off 1 Obtuse Marginal (OM) branch(es). The LCX and its branches are patent with no evidence of atherosclerosis. Right Coronary Artery (RCA): The RCA originates normally from the right sinus of Valsalva. The RCA gives off a posterior descending artery (PDA) and posterolateral (PL) branches. There is calcified plaque in the proximal RCA segment with no evidence of luminal stenosis. Non-Coronary Cardiac Findings: Analysis of the left ventricular (LV) structure and function was performed after 3-D reconstruction of the LV from axial images, with user-corrected automatic contouring for assessment of LV volumes and user-defined reconstruction from oblique planes for measurement of 3-D cardiac structure and function. -The left ventricle systolic function is normal. -There is no left atrial appendage filling defect. Two right pulmonary veins and two left pulmonary veins drain normally into the left atrium. -No pericardial thickening or calcification. -Central and branch pulmonary arteries in the hjxyx-no-shfq are unremarkable. -Thoracic aorta within the visualized thoracic aortic-branches in the fibmb-vo-zguh is unremarkable. Extracardiac Structures No significant extra-cardiac findings. Note, however, that this study is focused on the cardiac findings. IMPRESSION -Fair image quality. -Presence of coronary calcification with an Agatston score = 46 using the AJ-130 method. -The observed calcium score of 46 is at 85th percentile for subjects of the same age, sex, and race/ethnicity. -Mild, non-obstructive, noncalcified plaque in the mid LAD segment, with no evidence of significant flow-limiting atherosclerosis of the coronary arteries. -CAD-RADS 2. Management recommendations per ACC/AHA guidelines*, as clinically appropriate. *Recommendations: CAD RADS 0: Reassurance. Consider non-atherosclerotic causes of chest pain. CAD RADS 1: Consider non-atherosclerotic causes of chest pain. Consider preventive therapy and risk factor modification. CAD RADS 2: Consider non-atherosclerotic causes of chest pain. Consider preventive therapy and risk factor modification, particularly for patients with nonobstructive plaque in multiple segments. CAD RADS 3: Consider further functional testing. Consider symptom-guided anti-ischemic and preventive pharmacotherapy as well as risk factor modification per published guideline statements. CAD RADS 4A: Consider further functional testing or invasive coronary angiography with revascularization per published guideline statements. Consider symptom-guided anti-ischemic and preventive pharmacotherapy as well as risk factor modification per published guideline statements. CAD RADS 4B: Invasive coronary angiography recommended with revascularization per published guideline statements. Consider symptom-guided anti-ischemic and preventive pharmacotherapy as well as risk factor modification per published guideline statements. CAD RADS 5: Consider invasive angiography and/or viability assessment with revascularization per published guideline statements. Consider symptom-guided anti-ischemic and preventive pharmacotherapy as well as risk factor modification per published guideline statements. CRITICAL RESULT None COMMUNICATION Per this written report The coronary and cardiac findings of this CCTA were reviewed, reported, and signed by Derrick Watts MD (Rail Crew Member) Conclusion Electronically signed by : Maggie Watts MD 06/27/2025 12:36:00
[2025-06-24] MEDS: 0.9 % SODIUM CHLORIDE 50 ML VIAL IV (10:01)
[2025-06-24] MEDS: SODIUM CHLORIDE 0.9% 10ML SYR (RAD ONLY) 10 ML IV (10:01)
[2025-06-24] MEDS: IOPAMIDOL-370 (76%);100ML BOTTLE 85 ML IV (10:01)
== END 2025-06-24 23:59 | disposition home or self-care (01) ==
LOC: RT 07:47 → RAD 08:36
PROVIDERS: PCP Internal Medicine; Visit Provider Internal Medicine
DX: I34.0 Nonrheumatic mitral (valve) insufficiency (principal); I11.9 Hypertensive heart disease without heart failure; I25.10 Atherosclerotic heart disease of native coronary artery without angina pectoris; J44.9 Chronic obstructive pulmonary disease, unspecified; R60.9 Edema, unspecified
CPT/HCPCS: 75574; 93306; J1200; J2919; Q9967

== ENCOUNTER 2025-07-21 14:15 | Outpatient (CLI) | payer OTHER, SELFPAY ==
--- OUTSIDE RECORDS SUMMARY | 2025-07-21 14:53 | XMS_ITS | Clinical Summary ---
Author Organization [facility] Address [address] [place] [address] Care Team Providers Care Classified Ad Clerk Name Role Phone Juan Pablo Gilman MD Unavailable [phone] Arsenio Fish MD Unavailable Unavailabl Arlen Hawley NP Unavailable Indira Li DO Unavailable [phone] Allergies Active Allergy Reactions Criticality Noted Date [...] (09/18/2020): Added automatically from request for surgery [id number] DDD (degenerative disc disease), lumbar 09/18/20 20 Overview (09/18/2020): Added automatically from request for surgery [id number] Lumbar radiculopathy 09/18/2020 Overview (09/18/2020): Added automatically from request for surgery [id number] Foraminal stenosis of lumbar region 09/18/2020 Overview (09/18/2020): Added automatically from request for surgery [id number] Spinal stenosis of lumbar re gion without neurogenic claudication 09/18/2020 Overview (09/18/2020): Added automatically from request for surgery [id number] Lumbar stenosis without neurogenic claudication 09/18/2020 Overview (09/19/2020): Added automatically from request for surgery [id number] Radiculopathy, lumbar region 09/18/2020 Overview (09/19/2020): Added automatically from request for surgery [id number] Lumbar disc disease with radiculopathy 0 Spondylolisthesis of lumbar region 07/13/2020 Non morbid obesity due to excess calories 2016 Plantar fasciitis, bilateral 02/04/2017 Vitamin D deficiency 02/29/2016 Overview (02/17/2018): [facility] HTN (hypertension) Idiopathic myelofibrosis Overview (03/08/2015): Dr Javier Uriarte at [facility] Resolved Problems Problem Noted Date Diagnosed Date [...] Industry Job Start Date Job End Date [employer]ATE [employer] HEL[employer] Not on file Not on [...] Desirable Triglycerides 171(H) 0 - 149 mg/dL [facility] Comment: TOTAL TRIGLYCERIDE INTERPRETATION: Less than 150 mg/dL Normal 150-199 mg/dL Borderline HIgh 200-499 mg/dL High Greater or Equal to 500 mg/dL Very High NONHDL Calculated 139(H) 0 - 129 mg/dL [facility] Comment: NON-HDL INTERPRETATION: Less than 130 mg/dL Desirable 130-159 mg/dL Above Desirable 160-189 mg/dL Borderline High 190-219 mg/dL High Greater than or equal to 220 mg/dL Very High Serum (Serum) 10/18/2023 10: 11 AM EST 10/18/2023 6:14 PM EST Narrative [facility] - 10/18/2023 7:17 PM EST Has the patient fasted?->Yes us Payal Lo MD CHEMISTRY ORDERABLES Final Resul t Performing Organization Address City/State/[facility] Co de Phone Number [facility] [address] * MAMM-SCREENING W/CHARITY (08/08/2023 2:29 PM [...] full-field digital mammographic and computer-aided detection. The [employer] recommends annual screening mammography [...] using full-field digitalmammographic and computer-aided detection. The [place] recommends annual screening mammographyfor [...] (11/15/2022 6:45 AM EST) COLOGUARD Negative Negative [facility]ORE [facility]PER[facility] Comment: NEGATIVE TEST RESULT. A [...] Corona. et al, N Engl J Med 2014;370(14):4279-9604) The normal value (reference range) for this assay is negative. COLOGUARD RE-SCREENING RECOMMENDATION: Periodic colorectal cancer screening is an important part of preventive healthcare for asymptomatic individuals at average risk for colorectal cancer. Following a negative Cologuard result, the [place] [employer] and U.S. Multi-Society Task Force screening guidelines recommend a Cologuard re-screening interval of 3 years. References: [place] [employer] Guideline for Colorectal Cancer Screening: https://www.cancer.org/cancer/oyunj-afgghl-isthwl/orqfmjfxa-onwuxjmmc-zaoobth/ac s-rec ommendations.html.; Gabino ANSARI, Elliot FRANCISCO, Sanju SinclairK, Colorectal Cancer Screening: Recommendations for Physicians and Patients from the U.S. Multi-Society Task Force on Colorectal Cancer Screening , Am J Gastroenterology 2017; 112:4262-5417. TEST DESCRIPTION: Composite algorithmic analysis of stool [...] Corona. et al, N Engl J Med 2014;370(14):4117-9289.) Cologuard may produce a false negative or false positive result (no colorectal cancer or precancerous polyp present at colonoscopy follow up). A negative Cologuard test result does not guarantee the absence of CRC or advanced adenoma (pre-cancer). The current Cologuard screening interval is every 3 years. ([place] [employer] and U.S. Multi-Society Task Force). Cologuard performance data in a 10,000 patient pivotal study using colonoscopy as the reference method can be accessed at the following location: www.[employer]/results. Additional description of the Cologuard test process, warnings and precautions can be found at www.cologuard.com. Stool (Feces) 11/15/2022 6:4 5 AM EST 11/16/2022 10:12 AM EST Payal Lo MD BODY FLUIDS, STOOLS, AND OTHER F inal Result Performing Organization Address City/State/[facility] Phone Number [facility] [address] [phone] * CT-CHEST W/O CONTRAST (12/20/2020 1:19 PM [...] Recently Relevant to Health Maintenance Insurance [facility] Care Teams Classified Ad Clerk Relationship Specialty Start Date End Date Juan Pablo Gilman MD [address] [place] [address] Internal Medicine, Sleep Medicine 11/28/20 Arsenio Fish MD [address] [place] [address] Neurosurgery 11/30/20 Arlen Garcia NP [address] [place] [address] Nurse Practitioner Nurse Practitioner, Family 12/26/20 Indira Li DO [address] [place] [address] Dermatology 09/13/21
--- OUTSIDE RECORDS SUMMARY | 2025-07-21 14:53 | XMS_ITS | Encounter Summary ---
Author Organization [facility] Address [address] [place] [address] Care Team Providers Care Application Systems Architect Name Role Phone Payal Lo MD Primary [...] release of HIV test results or diagnoses. [id number] Health Encounter Details Date Type Department Care Team (Late st Contact Info) Description 05/11/[address] Orders [address] [facility] at [place] [facility] [address] [facility] [address] [place] [address] Dutch Isabel MD Social History [...] CONTRAST, 05/11/2018. CLINICAL HISTORY: M25.561-Pain in right [id number] COMPARISON: None. TECHNIQUE: Multiplanar, multisequence MR images [...] CONTRAST, 05/11/2018. CLINICAL HISTORY: M25.561-Pain in right [id number] COMPARISON: None. TECHNIQUE: Multiplanar, multisequence MR images [...] documented as of this encounter Care Teams Application Systems Architect Relationship Specialty Start Date End Date Payal Lo MD PCP - General Family Medicine 08/16/15 documented as of this encounter
--- OUTSIDE RECORDS SUMMARY | 2025-07-21 14:53 | XMS_ITS | Encounter Summary ---
Author Organization [facility] Address [address] [place] [address] Care Team Providers Care Book Publisher Name Role Phone Payal Lo MD Primary Care Provider [phone] Juan Pablo Gilman MD Unavailable [phone] Arsenio Fish MD Unavailable Unavailabl e Arlen Garcia NP Unavailable [phone] Indira Li DO Unavailable [phone] Reason for Visit * Reason Comments Medications Refill Encounter Details Date Type Department Care Team (Late st Contact Info) Description 01/26/2023 Refill [facility] Physicians - Primary Care, [place] [address] [place] [address] Payal Lo MD [address] [facility], [address] [place] [address] Medications Refill Social History Tobacco Use Types [...] Industry Job Start Date Job End Date [employer] Not on file Not on [...] documented as of this encounter Care Teams Book Publisher Relationship Specialty Start Date End Date Payal Lo MD PCP - General Family Medicine 03/01/15 09/29/24 Juan Pablo Gilman MD [address] [place] [address] Internal Medicine, Sleep Medicine 11/28/20 Arsenio Fish MD [address] [place] [address] Neurosurgery 11/30/20 Arlen Garcia NP [address] [place] [address] Nurse Practitioner Nurse Practitioner, Family 12/26/20 Indira Li DO [address] [place] [address] Dermatology 09/13/21 documented as of this encounter
--- OUTSIDE RECORDS SUMMARY | 2025-07-21 14:53 | XMS_ITS | Encounter Summary ---
Author Organization [facility] Address [facility] [place] [address] Care Team Providers Care Automobile Service Station Mechanic Name Role Phone Pcp, No Primary Care [...] release of HIV test results or diagnoses. [id number] Health Encounter Details Date Type Department Care Team (Late st Contact Info) Description 07/20/2015 Orders Only [facility] at [place] [facility] [address] [place] [address] Dutch Isabel MD Social History [...] Procedure Name Priority Date/Time Associated Diagnosis Comments [facility] EXTERNAL IMAGING 07/20/2015 11:21 AM EDT documented in this encounter Results * [facility] External Imaging (07/20/2015 11:21 AM EDT) Anatomical [...] documented as of this encounter Care Teams Automobile Service Station Mechanic Relationship Specialty Start Date End Date Pcp, No No Address PCP - General 06/28/13 08/15/15 Payal Lo MD No Address PCP - General Family Medicine 08/16/15 documented as of this encounter
--- OUTSIDE RECORDS SUMMARY | 2025-07-21 14:53 | XMS_ITS | Encounter Summary ---
Author Organization [facility] Address [address] [place] [address] Care Team Providers Care Manager Resource Name Role Phone Payal oL MD Primary Care Provider [phone] Juan Pablo Gilman MD Unavailable [phone] Arsenio Fish MD Unavailable Unavailabl e Arlen Garcia NP Unavailable [phone] Indira Li DO Unavailable [phone] Encounter Details Date Type Department Care Team (Late st Contact Info) Description 07/12/2020 Abstract [facility] Physicians - Spine Surgery, [place] [address] [place] [address] Ambulatory, Starter Cup Powder Mixer Social History Tobacco Use Types Packs/Day Years [...] Industry Job Start Date Job End Date [employer] Not on file Not on [...] documented as of this encounter Care Teams Manager Resource Relationship Specialty Start Date End Date Payal Lo MD PCP - General Family Medicine 03/01/15 09/29/24 Juan Pablo Gilman MD [address] [place] [address] Internal Medicine, Sleep Medicine 11/28/20 Arsenio Fish MD [address] [place] [address] Neurosurgery 11/30/20 Arlen Garcia NP [address] [place] [address] Nurse Practitioner Nurse Practitioner, Family 12/26/20 Indira Li DO [address] [place] [address] Dermatology 09/13/21 documented as of this encounter
--- OUTSIDE RECORDS SUMMARY | 2025-07-21 14:53 | XMS_ITS | Encounter Summary ---
Author Organization [facility] Address [facility] [place] [address] Care Team Providers Care Doctor'S Assistant Name Role Phone Pcp, No Primary Care [...] release of HIV test results or diagnoses. [id number] Health Encounter Details Date Type Department Care Team (Late st Contact Info) Description 07/18/2015 Orders Only [facility] Orth[facility] at [place] [facility] [address] [facility] [address] [place] [phone] [place] Isabel MD Left shoulder pain (Primary [...] documented as of this encounter Care Teams Doctor'S Assistant Relationship Specialty Start Date End Date Pcp, No No Address PCP - General 06/28/13 08/15/15 Payal Lo MD No Address PCP - General Family Medicine 08/16/15 documented as of this encounter
--- OUTSIDE RECORDS SUMMARY | 2025-07-21 14:53 | XMS_ITS | Encounter Summary ---
Author Organization [facility] Address [address] [place] [address] Care Team Providers Care Global Compensation Manager Name Role Phone Payal Lo MD Primary Care Provider [phone] Juan Pablo Gilman MD Unavailable [phone] Arsenio Fish MD Unavailable Unavailabl e Arlen Garcia NP Unavailable [phone] Indira Li DO Unavailable [phone] Reason for Visit * Reason Comments Medications Refill Encounter Details Date Type Department Care Team (Late st Contact Info) Description 04/02/2020 Refill [facility] Physicians - Primary Care, [place] [address] [id number] Payal Lo MD [address] [facility], [address] [place] [address] Medications Refill Social History Tobacco Use Types [...] Industry Job Start Date Job End Date [employer] Not on file Not on [...] documented as of this encounter Care Teams Global Compensation Manager Relationship Specialty Start Date End Date Payal Lo MD PCP - General Family Medicine 03/01/15 09/29/24 Juan Pablo Gilman MD [address] [place] [address] Internal Medicine, Sleep Medicine 11/28/20 Arsenio Fish MD [address] [place] [address] Neurosurgery 11/30/20 Arlen Garcia NP [address] [place] [address] Nurse Practitioner Nurse Practitioner, Family 12/26/20 Indira Li, [address] [facility] [place] [address] Dermatology 09/13/21 documented as of this encounter
--- OUTSIDE RECORDS SUMMARY | 2025-07-21 14:55 | XMS_ITS | Clinical Summary ---
Author Organization [facility] Address [address] [place] [address] Phone Care Team Providers Care Roll Hand Name Role Phone Chapito Hood MD, Payal Parker MD Primary Care Provider [phone] Allergies Active Allergy Reactions Criticality Noted Date Comments Amlodipine Swelling High 12/19/2021 Bee Venom Protein (Honey Bee) Anaphylaxis High 12/19 Flu Vac(Pf)2016(65up)-Letil10q Anaphylaxis High 11/28 Lisinopril Cough Medium 12/19/2021 Nebivolol Swelling High 12/19/2021 Shellfish Containing Products Anaphylaxis High 12/19 Tree Nuts Anaphylaxis High 12/19/2021 Medications fluticasone (FLONASE) 50 mcg/actuation Nasl [place], SuspensionIndica tions:Recurrent acute serous otitis media of right ear 1 [place] by Nasal route daily. 1 Bottle 8 [...] 09/10/2018, 04/17/2017, Additional history exists COVID-19 Vaccine (1 - 2024- season) 2025 Influenza Vaccine (#1) 2025 DTaP/TDaP/Td [...] Impressions 05/05/2014 8:33 AM EDT : Negative ([id number]) ~ RECOMMENDATION: Routine screening mammogram in 1 [...] most recent being 05-09-09 ~ IMPRESSION: Negative ([id number]) ~ RECOMMENDATION: Routine screening mammogram in 1 [...] Advance Directives For more information, please contact: [phone] * Full Code (Latest Code Status on File) Date Activated Date Inactivated Comments 12/19/2021 3:20 AM 12/19/2021 8:38 PM Care Teams Roll Hand Relationship Specialty Start Date End Date Conrado Uriarte MD PCP - Hematology/Oncology Internal Medicine-Medical Oncology 06/06/15 Payal Lo MD PCP - General Family Medicine 01/16/18
[2025-07-21 18:37] LABS: Chloride 94 mmol/L (98-107); Sodium 135 mmol/L (136-145)
[2025-07-21 18:38] LABS: Potassium 4.0 mmoL/L (3.5-5.1)
[2025-07-21 18:41] LABS: Anion Gap 13.0 mEq/L (5-15); Blood Urea Nitrogen 11 mg/dl (7-17); Calcium 8.9 mg/dl (8.4-10.2); Carbon Dioxide 32 mmol/L (22.0-30.0); Creatinine,Serum 0.80 mg/dl (0.52-1.04); Estimated Glomerular Filt Rate 73 ml/min (>60); GFR (African American) 89 ML/MIN (>60); Glucose 93 mg/dl (74-100)
== END 2025-07-21 23:59 | disposition home or self-care (01) ==
LOC: LAB 14:16
PROVIDERS: PCP Internal Medicine; Visit Provider Internal Medicine
DX: I10 Essential (primary) hypertension (principal)
CPT/HCPCS: 36415; 80048